=== PATIENT | female | born 1975 | race Caucasian/White ===

== ENCOUNTER 2016-07-17 17:47 | Emergency (ER) | payer SELFPAY ==
[~2016-07-17] VITALS: Ht 157.5 cm; Wt 54.4 kg
--- NOTE | 2016-07-17 18:04 | EKG ---
[address] [address] Test Date: 2016-07-17 Test Time: 18:03:38 Pat Name: FELIX CANNON Department: Room: Gender: F Ambulance Paramedic: : 1973-07-02 Requested By: LEVON VEGA Order Number: [id number] Reading MD: Measurements Intervals [place] Rate: 111 P: 71 IN: 130 QRS: 76 QRSD: 110 T: 8 QT: 320 QTc: 438 Interpretive Statements SINUS TACHYCARDIA LEFT ATRIAL ABNORMALITY ABNORMAL ECG RI6.01 Unconfirmed report No previous ECG available for comparison
[2016-07-17] MEDS ORDERED: IV NORMAL SALINE 1,000ML 1,000 ML ONE (18:17)
--- NOTE | 2016-07-17 18:46 | PHYS DOC ---
General Chief Complaint: DRUG ABUSE Time Seen by MD: 18:34 Source: patient Problems: History of Present Illness Initial Comments Patient here for generalized pain and weakness. Patient says it started yesterday is increased today. She says she I as painful the tip of her head to her toes and affects her entire body. She is really unable to localize any particular pain. She also says she feels weak and can barely get out of bed and go to the bathroom today. She's had no distinct fever or chills. There is no runny nose or sore throat. There is no earache. She says she's had a cough and occasional posttussive emesis, but none today. She denies any shortness of breath with this. Cough is otherwise nonproductive. She has some diffuse chest discomfort. There is no nausea currently. She also has abdominal discomfort, his part and parcel of her generalized pain according to her. Is no change in bladder habits. Her last period is unknown. She says she's had 4-5 episodes of diarrhea today without blood or bilious material. She says her diarrhea was so bad last night she cannot control her stool. She says her lower extremities feel somewhat shoulder her. She is generalized weak and achy but has no focal extremity or neurologic complaints of any acute nature at this time. Patient's done nothing at home for this and notes no factors that increase or decrease her symptoms. Patient's past medical history is remarkable for previous right rotator cuff surgery. She says she is postop surgery on the left. She had a hysterectomy. She also has recent injury to the right forearm with a bruise. She is currently on no prescribed medications. She smokes a pack per day of cigarettes. She is nonuser of ethanol. She missed IV drug use. She usually shoots up her right arm. She does Opana on a regular basis, most recently today. She did some heroin last week which was unusual for her. She says she was last tested for HIV and hepatitis in April 2015 and was negative. She says she uses clean needles. She says she is willing to go to detox or rehabilitation as needed. She last went 6 years ago. Allergies: Coded Allergies: No Known Drug Allergies (Unverified , 07/17/16) Past Medical History Surgical History: other Social History Smoker: less than 1 pack/day Alcohol: none Drugs: heroin, other Review of Systems All Other Systems: Reviewed and Negative Physical Exam General Appearance: WD/WN, mild distress Eyes: bilateral eye EOMI, bilateral eye PERRL, bilateral eye normal inspection Ear, Nose, Throat: normal ENT inspection, normal pharynx Neck: full range of motion, supple, normal inspection Respiratory: lungs clear, normal breath sounds, no respiratory distress Cardiovascular: regular rate, rhythm, no edema Gastrointestinal: soft, tenderness Back: no CVA tenderness, no vertebral tenderness Extremities: non-tender, normal inspection, swelling Neurologic/Psychiatric: no motor/sensory deficits, alert, normal mood/affect, oriented x 3 Skin: normal color Lymphatic: no adenopathy Comments Generally this is a thin, seemingly malnourished white female who looks significantly older than stated age. She appears to be mildly uncomfortable. Vitals are as noted. Pertinent findings on physical exam shows ears and throat clear. Patient's extremely poor dentition. Pupils are equal reactive light accommodation. Extra ocular movements are intact. The neck is clear. Chest is clear and cardiovascular exams unremarkable. Back shows no CVA tenderness. The abdomen is surprisingly tender to palpation, somewhat worse on the right lower quadrant. No masses, organomegaly, or perineal findings. He does have 1+ bilateral lower extremity edema without redness, cords, asymmetry, or signs of DVT. Left forearm is in a brace. Skin shows no rashes but there are multiple excoriations present throughout the body. She is awake, alert, oriented 4, with no gross motor or sensory deficits appreciated. She is cooperative with exam. Remainder of physical exam is clinically unremarkable. Orders, Labs, Meds Old charts note no prior ER visits within the current system. LEVON VEGA MD Jul 17, 2016 18:46
[2016-07-17] MEDS ORDERED: FENTANYL PF 100 MCG/2 ML VIAL. IV ONE ×2 (19:15→23:15)
[2016-07-17] MEDS ORDERED: IV NORMAL SALINE 1,000ML 1,000 ML IV ONE (19:15)
[2016-07-17 19:51] LABS: BASO % 0 % (0-3); EOS # 0.6 x10^3/uL (0.0-0.7); EOS % 3 % (0-3); HEMOGLOBIN 11.3 g/dL (12.0-15.5); LYMPH # 0.8 x10^3/uL (1.0-4.8); LYMPH % 4 % (24-48); MEAN CORPUSCULAR HEMOGLOBIN 29 pg (25-35); MEAN CORPUSCULAR HGB CONC 33 g/dL (31-37); MEAN CORPUSCULAR VOLUME 88 fL (79-100); MONO # 1.6 x10^3/uL (0.0-1.1); MONO % 8 % (0-9); NEUT # 17.3 x10^3uL (1.8-7.7); NEUT % 85 % (31-73); RED BLOOD COUNT 3.86 x10^6/uL (3.50-5.40); RED CELL DISTRIBUTION WIDTH 14.3 % (11.5-14.5); WHITE BLOOD COUNT 20.4 x10^3/uL (4.0-11.0)
[2016-07-17 19:56] LABS: PLATELET COUNT 19 x10^3/uL (140-400)
--- NOTE | 2016-07-17 20:08 | RAD ---
PROCEDURE CT abdomen pelvis without contrast. HISTORY Right upper quadrant pain, body aches. TECHNIQUE Helical CT imaging of the abdomen and pelvis is performed without IV or oral contrast. PQRS: One or more the following individualized dose reduction techniques were utilized for the study: 1. Automated exposure control. 2. Adjustment of the mA and/or kV according to patient size. 3. Use of iterative reconstruction technique. COMPARISON None. FINDINGS Evaluation of solid organs and bowel is limited without oral and IV contrast, decreasing sensitivity for detection of pathology. Spleen mildly enlarged measuring 13.2 cm. Liver is moderately enlarged measuring 21.6 cm. There are numerous subcentimeter pulmonary nodules in the lung bases. Several of the nodules are part solid there is a part solid mass in the right lower lobe versus consolidation measuring 2.6 by 4.6 cm. Cardiac size normal. Gallbladder, pancreas, adrenal glands, kidneys, and abdominal aortic caliber normal. No obvious abnormality of the stomach. No dilated small bowel is seen. Distal colon not well distended accentuating wall thickness. Appendix surgically absent. Uterus unremarkable. Urinary bladder normal. No pelvic free fluid. Small probable bone islands bilateral iliac wings. IMPRESSION 1. There is consolidation and ground-glass opacity in the posterior right lower lobe. There are multiple part solid pulmonary nodules. Considerations include atypical pneumonia, septic emboli, inflammatory process, or metastatic disease. Short-term follow up CT chest is recommended. 2. Hepatosplenomegaly. 3. No acute abdominal or pelvic abnormality. Electronically signed by: Rickie Walton MD (Jul 17, 2016 20:07:01)
[2016-07-17 20:12] LABS: ALBUMIN 2.2 g/dL (3.4-5.0); ALBUMIN/GLOBULIN RATIO 0.5 (1.0-1.7); C REACTIVE PROTEIN 194.1 mg/L (0-3.3); CALCIUM 7.5 mg/dL (8.5-10.1); CREATININE 2.5 mg/dL (0.6-1.0); GFR 20.9; TOTAL PROTEIN 6.7 g/dL (6.4-8.2)
[2016-07-17 20:17] LABS: POTASSIUM 2.9 mmol/L (3.5-5.1)
[2016-07-17 20:49] LABS: AMPHETAMINE/METHAMPHETAMINE NEG (NEG); BARBITURATES NEG (NEG); BENZODIAZEPINES NEG (NEG); CANNABINOIDS NEG (NEG); COCAINE NEG (NEG); METHADONE NEG (NEG); OPIATES NEG (NEG); PHENCYCLIDINE NEG (NEG)
[2016-07-17 20:51] LABS: CLARITY,URINE TURBID; COLOR,URINE YELLOW
[2016-07-17 20:52] LABS: BILIRUBIN,URINE NEG (NEG); GLUCOSE,URINE NEG (NEG); NITRITE,URINE NEG (NEG); UROBILINOGEN,URINE 1 mg/dL (0.2 mg/dL)
[2016-07-17 20:53] LABS: BACTERIA,URINE 0 /HPF (0-FEW); WBC,URINE >40 /HPF (0-4)
--- NOTE | 2016-07-17 20:56 | ACF ---
Admission Criteria Forms HYPONATREMIA; HYPERNATREMIA; HYPOKALEMIA; HYPERKALEMIA; HYPOCALCEMIA; HYPERCALCEMIA Clinical Indications for Inpatient Care (Place 'X' for any and all applicable criteria): Ongoing inpatient care may be indicated for ANY ONE of the following [G](1)(2)(3 )(5): [X]I. Hyponatremia with ANY ONE of the following: [X]a) Sodium less than 130 mEq/L (mmol/L) (new) (6)(22) [ ]b) Sodium less than 135 mEq/L (mmol/L) with ANY ONE of the following: [ ]i) Severe medical etiology requiring inpatient management (eg, heart failure, hypovolemia) [ ]ii) Altered mental status [ ]iii) Seizures [ ]II. Hypernatremia with ANY ONE of the following: [ ]a) Sodium greater than 155 mEq/L (mmol/L) [ ]b) Sodium greater than 150 mEq/L (mmol/L) with ANY ONE of the following: [ ] i) Altered mental status [ ]ii) Seizures [ ]iii) Severe medical etiology (eg, hypovolemia, diabetes insipidus) [ ]iv) Severe weakness [ ]v) Severe medical etiology (eg, hemolysis, infection, drug overdose) [ ]III. Hypokalemia with ANY ONE of the following: [ ]a) Potassium less than 2.5 mEq/L (mmol/L) despite outpatient and emergency treatment [ ]b) Potassium less than 3.0 mEq/L (mmol/L) with ANY ONE of the following: [ ]i) Weakness [ ]ii) Cardiac abnormality (eg, arrhythmia, conduction disturbance) [ ]iii) Cardiac ischemia [ ]iv) Ileus [ ]v) Ongoing medical cause requiring inpatient management. ( e.g., acute renal wasting, SIADH) [ ]vi) Other severe symptoms [ ] IV. Hyperkalemia with ANY ONE of the following: [ ]a) Potassium greater than 6.5 mEq/L (mmol/L) [ ]b) Potassium greater than 5 mEq/L (mmol/L) with ANY ONE of the following: [ ]i) Severe ECG findings [H] [ ]ii) Acute worsening of renal failure (creatinine greater than 2.5 mg/dL (221 micromoles/L) or significant elevation for age and size) [ ] V. Hypocalcemia with ANY ONE of the following: [ ]a) Calcium less than 7 mg/dL (1.75 mmol/L) despite outpatient and emergency treatment(19) [ ]b) Calcium less than 8 mg/dL (2 mmol/L) with significant symptoms or findings; examples include: [ ]i) Cardiac abnormality (eg, arrhythmia or conduction disturbance) [ ]ii) Altered mental status [ ]iii) Seizures [ ]iv) Breathing difficulty [ ]v) Muscle spasms [ ]. Hypercalcemia with ANY ONE of the following: [ ]a) Calcium greater than 14 mg/dL (3.5 mmol/L) [ ]b) Calcium greater than 12 mg/dL (3 mmol/L) with ANY ONE of the following: [ ]i) Significant dehydration or hypovolemia as indicated by ANY ONE of the following(2): [ ]1. Clinically significant dehydration as indicated by ANY ONE of the following: [ ]A. Acute loss of weight from baseline (5% of body weight in adults, 9% in pediatric patients) [ ]B. Hemodynamic instability [ ]C. Acute renal failure [ ]D. Serum sodium greater than 150 mEq/L (mmol/L) [ ]2) Dehydration that is persistent indicated by ALL of the following: [ ]A. Oral rehydration therapy not tolerated or insufficient to adequately correct dehydration [ ]B. Appropriate intravenous treatment (eg, fluids ) does not readily correct dehydration ie, after 12 to 24 hours of treatment) [ ]ii) Significant symptoms or findings; examples include: [ ]1) Altered mental status [ ]2) Cardiac abnormality (eg, arrhythmia, conduction disturbance) [ ]3) Cardiac abnormality (eg, arrhythmia, conduction disturbance) The original [email or web address] content created by [email or web address] has been revised. The portions of the content which have been revised are identified through the use of italic text or in bold, and [facility] has neither reviewed nor approved the modified material. All other unmodified content is copyright [facility] Please see references footnoted in the original [facility] [employer] edition 2016 Admission Criteria Met?: Pending POP HUERTAS Jul 17, 2016 20:56
[2016-07-17 21:33] LABS: % BANDS 7 % (0-9); % LYMPHS 6 % (24-48); % MONOS 6 % (0-10); % SEGS 79 % (35-66)
[2016-07-17 21:34] LABS: TOXIC GRANULATION PRESENT
[2016-07-17 21:35] LABS: PLT ESTIMATE DECREASED (ADEQUATE)
[2016-07-17 21:36] LABS: TOXIC VACUOLATION PRESENT
[2016-07-17 21:37] LABS: HOWELL-JOLLY BODIES PRESENT
[2016-07-17] MEDS ORDERED: MEROPENEM 1 GM in IV NORMAL SALINE 100ML 100 ML IV SCH (22:15)
[2016-07-17] MEDS ORDERED: VANCOMYCIN 1 GM in IV NORMAL SALINE 250ML 250 ML IV ONE (22:15)
[2016-07-17] MEDS ORDERED: IV NORMAL SALINE 100ML 100 ML ONE (22:16)
[2016-07-17] MEDS ORDERED: IV NORMAL SALINE 250ML 250 ML ONE (22:16)
[2016-07-17] MEDS ORDERED: VANCOMYCIN 1 GM VIAL. ONE (22:16)
[2016-07-17] MEDS ORDERED: MEROPENEM 1 GM VIAL IV ONE (22:16)
[2016-07-18 00:44] VITALS: BP 101/44
--- NOTE | 2016-07-18 08:42 | RAD ---
Portable chest, 07/17/2016: History: Cough, shortness of breath Comparison is made to a study from 11/20/2010. The heart size and pulmonary vascularity are normal. No definite pulmonary infiltrates are seen. Basilar parenchymal opacities delineated on the subsequent CT study are not clearly visualize radiographically. There is no evidence of pleural fluid. IMPRESSION: No acute cardiopulmonary abnormality is detected.
[2016-07-18 19:11] LABS: HCV ANTIBODY >11.0 s/co ratio (0.0-0.9); HEP A IGM ABDY Negative (Negative)
== END 2016-07-18 00:48 | disposition short-term general hospital (02) ==
LOC: ER 17:47
DX: M79.1 Myalgia (principal); N39.0 Urinary tract infection, site not specified; R16.2 Hepatomegaly with splenomegaly, not elsewhere classified; D69.6 Thrombocytopenia, unspecified; R79.1 Abnormal coagulation profile; D72.829 Elevated white blood cell count, unspecified; R19.7 Diarrhea, unspecified; R07.9 Chest pain, unspecified; F17.210 Nicotine dependence, cigarettes, uncomplicated
CPT/HCPCS: 36415; 71010; 74176; 80053; 80074; 80305; 80320; 81001; 82010; 82140; 82150; 82553; 83605; 83690; 85007; 85027; 85379; 86140; 86703; 87040; 87205; 93005; 96361; 96365; 96366; 96367; 96375; 96376; 99285; J2185; J3010; J3370; J7050; G0480; G0481; J7030

== ENCOUNTER 2016-09-06 01:24 | Emergency (ER) | payer SELFPAY ==
[~2016-09-06] VITALS: Ht 309.9 cm; Wt 54.4 kg
--- NOTE | 2016-09-06 01:39 | ED.ADGEN ---
Past History Past Medical History: Other Past Surgical History: Other Alcohol Use: None Drug Use: Heroin, Opiates Adult General Chief Complaint Chief Complaint Dyspnea HPI HPI Patient is a 41 year old Sophie female who presents with shortness of breath. She was just discharged on August 28 from [facility] after a month stay in the hospital which included her being intubated and having endocarditis, with a PEG tube. She still has her PEG tube and states she hasn't used it since she was discharged from [facility]. She states she was seen at [facility] recently for back pain which she still currently has and was discharged from the ER with [facility] for a UTI. She states she also is on Xanax for episodes of panic attacks and dyspnea. She states that tonight she started feeling short of breath and she usually tries to relax with the lights shut off and her shortness of breath has not improved. She denies any chest pain but states she feels uncomfortable in her chest secondary to shortness of breath. She also felt nauseated and hasn' t been eating or drinking much. She states that she's had for 5 episodes of loose stools without any blood in it over the last 1-2 days. She also complains of right upper quadrant pain this been constant. She also complains of low back pain that's been there for several days and was seen and evaluated on September 03 by an MRI. She denies any drug use since July 28 in addition his same time she quit smoking. Which is admitted to [facility] on July 28, she had the following diagnosis. 1. Sepsis 2. Acute hypoxic respir failure 3. Endocarditis 3. PNA 4. Bilateral empyemas 5. Acute respiratory failure 6. Diarrhea 7. Anemia 8. Thrombocytopenia 9. CHERELLE 10. Hep C 11. Polysubstance abuse 12. Depression 13. Malnutrition [] She was discharged on August 28 from [facility] after she was trached and had a PEG tube placed. She since had her trach removed. She was seen on September 03 at [facility] for back pain and had MRI of her back in a CT scan of her abdomen pelvis. Review of Systems Review of Systems Constitutional: Denies fever or chills [] Eyes: Denies change in visual acuity, redness, or eye pain [] HENT: Denies nasal congestion or sore throat [] Respiratory: Denies cough or shortness of breath [] Cardiovascular: No additional information not addressed in HPI [] GI: Denies abdominal pain, nausea, vomiting, bloody stools or diarrhea [] : Denies dysuria or hematuria [] Musculoskeletal: Denies back pain or joint pain [] Integument: Denies rash or skin lesions [] Neurologic: Denies headache, focal weakness or sensory changes [] Endocrine: Denies polyuria or polydipsia [] Current Medications Current Medications Current Medications Medications (Trade) Dose Ordered Sig/Latrell Start Time Stop Time Status Last Admin Dose Admin Albuterol/ Ipratropium (Duoneb) 3 ml 1X ONCE 09/06/16 05:45 09/06/16 05:46 UNV Fentanyl Citrate (Fentanyl 2ml Vial) 50 mcg 1X ONCE 09/06/16 05:15 09/06/16 05:16 DC 09/06/16 05:15 50 MCG Furosemide (Lasix) 40 mg 1X ONCE 09/06/16 05:45 09/06/16 05:46 UNV Info (Do NOT chart on this entry -- for MONITORING) 1 each PRN DAILY PRN 09/06/16 03:30 09/08/16 03:29 Iohexol (Omnipaque 300 Mg/ml) 75 ml 1X ONCE 09/06/16 03:30 09/06/16 03:31 DC 09/06/16 03:28 75 ML Lorazepam (Ativan) 1 mg 1X ONCE 09/06/16 03:00 09/06/16 03:21 DC 09/06/16 02:51 1 MG Sodium Chloride 1,000 ml @ 1,000 mls/hr 1X ONCE 09/06/16 02:00 09/06/16 03:21 DC 09/06/16 02:00 1,000 MLS/HR Allergies Allergies Allergies Coded Allergies Type Severity Reaction Last Updated Verified No Known Drug Allergies 07/17/16 No Physical Exam Physical Exam Constitutional: Well developed, well nourished, in mild distress, non-toxic appearance. [] HENT: Normocephalic, atraumatic, bilateral external ears normal, oropharynx moist, no oral exudates, nose normal. [] Eyes: PERRLA, EOMI, conjunctiva normal, no discharge. [] Neck: Normal range of motion, no tenderness, supple, no stridor. Well-healing trach site Cardiovascular:Heart rate tachycardic with regular rhythm, no murmur [] Lungs & Thorax: Bilateral breath sounds clear to auscultation him a tachypneic [] Abdomen: Bowel sounds at both active, soft, tender palpation in the right upper quadrant, no masses, no pulsatile masses. PEG tube in left quadrant Skin: Warm, dry, no erythema, no rash. [] Back: No tenderness, no CVA tenderness. [] Extremities: No tenderness, no cyanosis, no clubbing, ROM intact, no edema. [] Neurologic: Alert and oriented X 3, normal motor function, normal sensory function, no focal deficits noted. [] Psychologic: Affect normal, judgement normal, mood normal. [] Current Patient Data Vital Signs Vital Signs Date Time Temp Pulse Resp B/P (MAP) Pulse Ox O2 Delivery O2 Flow Rate FiO2 09/06/16 04:52 97.6 129 40 132/116 (121) 95 Nasal Cannula 2.5 Lab Results Laboratory Tests Test 09/06/16 01:45 09/06/16 02:15 09/06/16 02:20 09/06/16 03:30 White Blood Count 17.7 x10^3/uL (4.0-11.0) H Red Blood Count 4.11 x10^6/uL (3.50-5.40) Hemoglobin 12.3 g/dL (12.0-15.5) Hematocrit 38.0 % (36.0-47.0) Mean Corpuscular Volume 93 fL (79-100) Mean Corpuscular Hemoglobin 30 pg (25-35) Mean Corpuscular Hemoglobin Concent 32 g/dL (31-37) Red Cell Distribution Width 19.7 % (11.5-14.5) H Platelet Count 293 x10^3/uL (140-400) # Neutrophils (%) (Auto) 68 % (31-73) Lymphocytes (%) (Auto) 26 % (24-48) Monocytes (%) (Auto) 5 % (0-9) Eosinophils (%) (Auto) 1 % (0-3) Basophils (%) (Auto) 1 % (0-3) Neutrophils # (Auto) 12.1 x10^3uL (1.8-7.7) H Lymphocytes # (Auto) 4.5 x10^3/uL (1.0-4.8) Monocytes # (Auto) 0.9 x10^3/uL (0.0-1.1) Eosinophils # (Auto) 0.1 x10^3/uL (0.0-0.7) Basophils # (Auto) 0.2 x10^3/uL (0.0-0.2) Segmented Neutrophils % 55 % (35-66) Band Neutrophils % 3 % (0-9) Lymphocytes % 36 % (24-48) Atypical Lymphocytes % (Manual) 2 % (0-0) H Monocytes % 3 % (0-10) Eosinophils % 1 % (0-5) Nucleated Red Blood Cells 0 Platelet Estimate Adequate (ADEQUATE) Anisocytosis Present Microcytosis Present Macrocytosis Present Erythrocyte Sedimentation Rate 41 (0-25) H Sodium Level 139 mmol/L (136-145) Potassium Level 4.4 mmol/L (3.5-5.1) Chloride Level 104 mmol/L (98-107) Carbon Dioxide Level 21 mmol/L (21-32) Anion Gap 14 (6-14) Blood Urea Nitrogen 11 mg/dL (7-20) Creatinine 0.7 mg/dL (0.6-1.0) Estimated GFR (Cockcroft-Gault) 91.8 BUN/Creatinine Ratio 16 (6-20) Glucose Level 168 mg/dL (70-99) H Lactic Acid Level 5.5 mmol/L (0.4-2.0) *H Calcium Level 8.6 mg/dL (8.5-10.1) Total Bilirubin 0.8 mg/dL (0.2-1.0) Aspartate Amino Transferase (AST) 34 U/L (15-37) Alanine Aminotransferase (ALT) 20 U/L (14-59) Alkaline Phosphatase 286 U/L (46-116) H Creatine Kinase 47 U/L (26-192) Creatine Kinase MB (Mass) < 0.5 ng/mL (0.0-3.6) Creatine Kinase MB Relative Index 1.1 % (0-4) Troponin I Quantitative 0.051 ng/mL (0-0.055) C-Reactive Protein 29.4 mg/L (0-3.3) H HP-Rzl-N-Type Natriuretic Peptide 16899 pg/mL (0-124) H Total Protein 8.0 g/dL (6.4-8.2) Albumin 2.2 g/dL (3.4-5.0) L Albumin/Globulin Ratio 0.4 (1.0-1.7) L Blood pH 7.44 (7.35-7.45) Blood Gas PCO2 28 mmHg (35-45) L Blood Gas PO2 73 mmHg (80-100) L Blood Gas HCO3 19 mmol/L (22-26) L Arterial Bld O2 Saturation (Calc) 95 % (92-99) FiO2 28 % Prothrombin Time 13.8 SEC (9.4-11.4) H Prothrombin Time INR 1.3 (0.9-1.1) H PTT 24 SEC (23-33) Lipase 66 U/L (73-393) L Salicylates Level 0.5 mg/dL (2.8-20.0) L Salicylate Last Dose Date 09/06/16 Salicylate Last Dose Time 0242 Acetaminophen Level < 2 mcg/mL (10-30) L Acetaminophen Last Dose Date 09/06/16 Acetaminophen Last Dose Time 0242 Ethyl Alcohol Level < 10 mg/dL (0-10) Test 09/06/16 04:00 Urine Collection Type Void Urine Color Lori Urine Clarity Hazy Urine pH 6.0 Urine Specific [place] 1.025 Urine Protein 100 mg/dl (NEG-TRACE) Urine Glucose (UA) Neg mg/dL (NEG) Urine Ketones (Stick) Neg mg/dL (NEG) Urine Blood Small (NEG) Urine Nitrite Neg (NEG) Urine Bilirubin Neg (NEG) Urine Urobilinogen Dipstick 1 mg/dL (0.2 mg/dL) Urine Leukocyte Esterase Trace (NEG) Urine RBC 3-5 /HPF (0-2) Urine WBC 5-10 /HPF (0-4) Urine Squamous Epithelial Cells Few /LPF Urine Bacteria Mod /HPF (0-FEW) Urine Mucus Mod /LPF Urine Test Negative (NEG) Urine Opiates Screen Neg (NEG) Urine Methadone Screen Neg (NEG) Urine Barbiturates Neg (NEG) Urine Phencyclidine Screen Neg (NEG) Urine Amphetamine/Methamphetamine Neg (NEG) Urine Benzodiazepines Screen Pos (NEG) Urine Cocaine Screen Neg (NEG) Urine Cannabinoids Screen Neg (NEG) Urine Ethyl Alcohol Neg (NEG) EKG EKG EKG shows sinus tachycardia 328 bpm with right axis deviation, T-wave inversions noted in 1, 2, V5 V6, no ST elevations appreciated, QTC 494 ms, as interpreted by me. EKG is similar to one on September 03, 2016 with noted T-wave inversions in lead 1, aVL, V5 and V6 however the rate was 85 bpm Radiology/Procedures Radiology/Procedures [address] [id number] IMAGING REPORT Signed PATIENT: FELIX CANNON ACCOUNT: [id number] : 1975 LOCATION: ER AGE: 41 SEX: F EXAM STATUS: REG ER ORD. PHYSICIAN: GAMALIEL PRUITT MD REASON: abd pain with elevated lactic acid PROCEDURE: CT ANGIO CHEST ABD PELVIS EXAM: CT ANGIOGRAPHY OF THE CHEST, ABDOMEN AND PELVIS WITH AND WITHOUT INTRAVENOUS CONTRAST. HISTORY: Shortness of breath, nausea, lactic acidosis, abdominal pain. TECHNIQUE: Computed tomographic angiography of the chest, abdomen and pelvis was performed before and after the intravenous administration of 75 mL Omnipaque 300. 3-D maximum intensity projections were also performed. COMPARISON: July 17, 2016, September 03, 2016. FINDINGS: No pulmonary emboli are identified. The lower lobe pulmonary arteries are not well opacified on the left greater than right. This is likely from early contrast timing and altered perfusion in the mostly consolidated left lower lobe. There is no thoracic aortic dissection or aneurysm.. There is no arch vessel stenosis. There is no abdominal aortic aneurysm. The iliac systems are patent without stenosis. The celiac axis, superior mesenteric artery and inferior mesenteric artery are patent. Both renal arteries are patent. There is a small accessory artery to the left renal lower pole. Bone windows reveal no suspicious lesions. There are small to moderate bilateral pleural effusions. These appear at least partially loculated. There is some gas in the pleural space in the left base as seen on the prior study. There is diffuse septal line thickening indicating [id number] pulmonary edema. Multiple cavitary lesions measure up to 4.6 x 1.5 cm in the left upper lobe. These are superimposed on the nodules noted on prior studies. The left lower lobe is partially consolidated and atelectatic. The heart is moderately enlarged. There is a small pericardial effusion. Mediastinal lymph nodes measure up to 2.0 x 1.0 cm in the lateral aortic territory. There is diffuse body wall edema. A gastrostomy catheter is in place. The liver is moderately to severely enlarged with at least mild diffuse hepatic steatosis. The spleen is not enlarged. The adrenal glands, pancreas and kidneys are unremarkable. Diffuse gallbladder wall thickening likely reflects systemic edema rather than cholecystitis. There are no pathologically enlarged lymph nodes. There is a small to moderate amount of ascites throughout the abdomen. There is no obstruction. There is mild diffuse colonic and small bowel wall thickening. IMPRESSION: 1. Cavitary lesions most notably in the left upper lobe suggest evolution of septic emboli on comparison with prior studies and the history of intravenous drug abuse. Also correlate to exclude atypical infectious processes such as mycobacterial infection. 2. Consolidation and atelectasis are worst in the left lower lobe. 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 3. Bilateral small to moderate loculated pleural effusions. 4. Moderate cardiomegaly. 5. At least moderate pulmonary edema. Anasarca. Small to moderate ascites. 6. Diffuse small bowel and colonic wall thickening may reflect systemic edema. Ischemia could produce this appearance if there is shock/hypotension. No mesenteric arterial stenosis. *One or more of the following individualized dose reduction techniques were utilized for this examination: 1. Automated exposure control. 2. Adjustment of the mA and/or kV according to patient size. 3. Use of iterative reconstruction technique. Electronically signed by: Nydia King MD (09/06/2016 4:10 AM) DICTATED AND SIGNED BY: WILFRIDO KING MD DATE: 09/06/16 0353 CC: GAMALIEL PRUITT MD; MALIA BELCHER DO ~ Course & Med Decision Making Course & Med Decision Making Pertinent Labs and Imaging studies reviewed. (See chart for details) She presents with tachypnea and tachycardia. Her lactic acid is 5.5 with a pH is 7.44. She does have a metabolic acidosis with a respiratory alkalosis. She was placed on 2 liter of oxygen on arrivial. CT scan of her abdomen and pelvis has been completed. Spoke with to [facility] excepts the patient for admission. The patient being admitted to the ICU in critical but stable condition this time. She has pulmonary edema and ascites. Her respiratory rate is elevated at 35 in addition to her heart rate in the 120s. I've held off giving IV fluids secondary to her pulmonary edema and requiring 2 L of oxygen. She is requiring additional oxygen and now up to 5 liters. I've offered BiPAP to the patient however she refuses it because of her claustrophobia. I gave her 40 mg IV lasix and ordered a duo neb for ems to deliver in route to [facility] ICU. Patient and her is agreeable to being transferred to the ICU at [facility]. She is in stable but critical condition. Final Impression Final Impression Metabolic acidosis with respiratory alkalosis hypoxemia Abdominal pain History of endocarditis Back pain Pulmonary edema Ascites Problems: Dragon Disclaimer Dragon Disclaimer This electronic medical record was generated, in whole or in part, using a voice recognition dictation system. GAMALIEL PRUITT MD Sep 06, 2016 01:39
[2016-09-06 01:57] LABS: BASO # 0.2 x10^3/uL (0.0-0.2); BASO % 1 % (0-3); EOS # 0.1 x10^3/uL (0.0-0.7); EOS % 1 % (0-3); HEMOGLOBIN 12.3 g/dL (12.0-15.5); LYMPH # 4.5 x10^3/uL (1.0-4.8); LYMPH % 26 % (24-48); MEAN CORPUSCULAR HEMOGLOBIN 30 pg (25-35); MEAN CORPUSCULAR HGB CONC 32 g/dL (31-37); MEAN CORPUSCULAR VOLUME 93 fL (79-100); MONO # 0.9 x10^3/uL (0.0-1.1); MONO % 5 % (0-9); NEUT # 12.1 x10^3uL (1.8-7.7); NEUT % 68 % (31-73); PLATELET COUNT 293 x10^3/uL (140-400); RED BLOOD COUNT 4.11 x10^6/uL (3.50-5.40); RED CELL DISTRIBUTION WIDTH 19.7 % (11.5-14.5); WHITE BLOOD COUNT 17.7 x10^3/uL (4.0-11.0)
[2016-09-06] MEDS ORDERED: IPRATRPIUM/ALBUTEROL 0.5/2.5MG 3 ML NEBU. NEB ONE ×2 (02:00→05:45)
[2016-09-06] MEDS ORDERED: LORazepam 2 MG/ML VIAL IV ONE ×2 (02:00→03:00)
[2016-09-06] MEDS ORDERED: IV NORMAL SALINE 1,000ML 1,000 ML IV ONE (02:00)
[2016-09-06 02:28] LABS: ALBUMIN 2.2 g/dL (3.4-5.0); ALBUMIN/GLOBULIN RATIO 0.4 (1.0-1.7); ALK PHOS 286 U/L (46-116); ALT (SGPT) 20 U/L (14-59); ANION GAP 14 (6-14); AST (SGOT) 34 U/L (15-37); BLOOD UREA NITROGEN 11 mg/dL (7-20); BUN/CREATININE RATIO 16 (6-20); CALCIUM 8.6 mg/dL (8.5-10.1); CARBON DIOXIDE 21 mmol/L (21-32); CHLORIDE 104 mmol/L (98-107); CREATINE KINASE 47 U/L (26-192); CREATININE 0.7 mg/dL (0.6-1.0); GFR 91.8; GLUCOSE 168 mg/dL (70-99); POTASSIUM 4.4 mmol/L (3.5-5.1); SODIUM 139 mmol/L (136-145); TOTAL BILIRUBIN 0.8 mg/dL (0.2-1.0)
[2016-09-06 02:29] LABS: BGAS PH 7.44 (7.35-7.45)
[2016-09-06 03:02] LABS: % ATYL 2 % (0-0); % BANDS 3 % (0-9); % EOS 1 % (0-5); % LYMPHS 36 % (24-48); % MONOS 3 % (0-10); % SEGS 55 % (35-66); NUCLEATED RBC 0; PLT ESTIMATE ADEQUATE (ADEQUATE)
[2016-09-06 03:03] LABS: ANISOCYTOSIS PRESENT; MICROCYTOSIS PRESENT
[2016-09-06] MEDS ORDERED: IOHEXOL 300 MG/ML 75 ML VIAL. IV ONE (03:30)
[2016-09-06] MEDS ORDERED: CONTRAST GIVEN MC PRN (03:30)
[2016-09-06 03:51] LABS: SALIC 0.5 mg/dL (2.8-20.0)
[2016-09-06 03:52] LABS: ACETAMIN < 2 mcg/mL (10-30); ETHANOL < 10 mg/dL (0-10)
--- NOTE | 2016-09-06 04:13 | RAD ---
EXAM: CT ANGIOGRAPHY OF THE CHEST, ABDOMEN AND PELVIS WITH AND WITHOUT INTRAVENOUS CONTRAST. HISTORY: Shortness of breath, nausea, lactic acidosis, abdominal pain. TECHNIQUE: Computed tomographic angiography of the chest, abdomen and pelvis was performed before and after the intravenous administration of 75 mL Omnipaque 300. 3-D maximum intensity projections were also performed. COMPARISON: July 17, 2016, September 03, 2016. FINDINGS: No pulmonary emboli are identified. The lower lobe pulmonary arteries are not well opacified on the left greater than right. This is likely from early contrast timing and altered perfusion in the mostly consolidated left lower lobe. There is no thoracic aortic dissection or aneurysm.. There is no arch vessel stenosis. There is no abdominal aortic aneurysm. The iliac systems are patent without stenosis. The celiac axis, superior mesenteric artery and inferior mesenteric artery are patent. Both renal arteries are patent. There is a small accessory artery to the left renal lower pole. Bone windows reveal no suspicious lesions. There are small to moderate bilateral pleural effusions. These appear at least partially loculated. There is some gas in the pleural space in the left base as seen on the prior study. There is diffuse septal line thickening indicating [id number] pulmonary edema. Multiple cavitary lesions measure up to 4.6 x 1.5 cm in the left upper lobe. These are superimposed on the nodules noted on prior studies. The left lower lobe is partially consolidated and atelectatic. The heart is moderately enlarged. There is a small pericardial effusion. Mediastinal lymph nodes measure up to 2.0 x 1.0 cm in the lateral aortic territory. There is diffuse body wall edema. A gastrostomy catheter is in place. The liver is moderately to severely enlarged with at least mild diffuse hepatic steatosis. The spleen is not enlarged. The adrenal glands, pancreas and kidneys are unremarkable. Diffuse gallbladder wall thickening likely reflects systemic edema rather than cholecystitis. There are no pathologically enlarged lymph nodes. There is a small to moderate amount of ascites throughout the abdomen. There is no obstruction. There is mild diffuse colonic and small bowel wall thickening. IMPRESSION: 1. Cavitary lesions most notably in the left upper lobe suggest evolution of septic emboli on comparison with prior studies and the history of intravenous drug abuse. Also correlate to exclude atypical infectious processes such as mycobacterial infection. 2. Consolidation and atelectasis are worst in the left lower lobe. 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 3. Bilateral small to moderate loculated pleural effusions. 4. Moderate cardiomegaly. 5. At least moderate pulmonary edema. Anasarca. Small to moderate ascites. 6. Diffuse small bowel and colonic wall thickening may reflect systemic edema. Ischemia could produce this appearance if there is shock/hypotension. No mesenteric arterial stenosis. *One or more of the following individualized dose reduction techniques were utilized for this examination: 1. Automated exposure control. 2. Adjustment of the mA and/or kV according to patient size. 3. Use of iterative reconstruction technique. Electronically signed by: Nydia King MD (09/06/2016 4:10 AM)
[2016-09-06] MEDS ORDERED: fentaNYL PF 100 MCG/2 ML VIAL IV ONE ×2 (04:15→05:15)
[2016-09-06 04:27] LABS: BILIRUBIN,URINE NEG (NEG); CLARITY,URINE HAZY; COLOR,URINE AMBER; GLUCOSE,URINE NEG (NEG); U PREG PATIENT NEGATIVE (NEG)
[2016-09-06 04:28] LABS: BARBITURATES NEG (NEG); BENZODIAZEPINES POS (NEG); CANNABINOIDS NEG (NEG); COCAINE NEG (NEG); METHADONE NEG (NEG); OPIATES NEG (NEG); PHENCYCLIDINE NEG (NEG)
[2016-09-06 04:29] LABS: BACTERIA,URINE MOD /HPF (0-FEW); NITRITE,URINE NEG (NEG); SQUAMOUS EPITHELIAL CELL,UR FEW /LPF; UROBILINOGEN,URINE 1 mg/dL (0.2 mg/dL)
[2016-09-06 04:34] LABS: AMPHETAMINE/METHAMPHETAMINE NEG (NEG)
[2016-09-06 04:57] VITALS: BP 133/111
[2016-09-06] MEDS ORDERED: FUROSEMIDE 40 MG/4 ML VIAL IVP ONE (05:45)
--- NOTE | 2016-09-06 06:08 | EKG ---
[address] [address] Test Date: 2016-09-06 Test Time: 01:46:44 Pat Name: FELIX CANNON Department: Room: Gender: F Trimming Caser: BRYN : 1975 Requested By: GAMALIEL PRUITT Order Number: [id number] Reading MD: Torres Goldberg Measurements Intervals [place] Rate: 128 P: 31 AK: 114 QRS: 92 QRSD: 94 T: -176 QT: 336 QTc: 494 Interpretive Statements SINUS TACHYCARDIA LEFT ATRIAL ABNORMALITY RIGHTWARD AXIS LOW LIMB LEAD VOLTAGE QRS(T) CONTOUR ABNORMALITY CONSIDER ANTEROSEPTAL MYOCARDIAL DAMAGE T ABNORMALITY IN ANTEROLATERAL LEADS INFEROLATERAL LEADS RI6.01 Unconfirmed report Electronically Signed On 09-10-2016 9:36:53 CDT by Torres Goldberg
--- NOTE | 2016-09-06 07:39 | RAD ---
Indication: Dyspnea. Time of exam 0148 hours. Correlation is made with prior exam from 07/17/2016. The heart is enlarged. There are patchy airspace infiltrates that have developed throughout both lungs. There are also small to moderate bilateral effusions. No pneumothorax is seen. Impression: Development of bilateral pulmonary infiltrates and bilateral pleural effusions.
== END 2016-09-06 05:58 | disposition short-term general hospital (02) ==
LOC: ER 01:24
DX: E87.4 Mixed disorder of acid-base balance (principal); R09.02 Hypoxemia; R18.8 Other ascites; J81.1 Chronic pulmonary edema; M54.9 Dorsalgia, unspecified; R10.9 Unspecified abdominal pain; F11.10 Opioid abuse, uncomplicated; F19.10 Other psychoactive substance abuse, uncomplicated
CPT/HCPCS: 36415; 36600; 71010; 71275; 74174; 80053; 80305; 81001; 81025; 82553; 82803; 83605; 83690; 83880; 84484; 85007; 85027; 85610; 85651; 85730; 86140; 87040; 87086; 87186; 87324; 93005; 94640; 96361; 96374; 96375; 96376; 99285; G0480; J1940; J2060; J3010; J7620; Q9967; G0481; J7030

== ENCOUNTER 2016-10-29 19:46 | Emergency (ER) | payer SELFPAY ==
[~2016-10-29] VITALS: Ht 309.9 cm; Wt 54.4 kg
[2016-10-29 19:50] VITALS: BP 109/67
[2016-10-29] MEDS ORDERED: AZITHROMYCIN 250 MG TABLET. ONE (20:34)
[2016-10-29] MEDS ORDERED: cefTRIAXone SODIUM 1 GM VIAL IV ONE (20:34)
[2016-10-29] MEDS ORDERED: IV NORMAL SALINE 50ML 50 ML ONE (20:34)
[2016-10-29 20:45] LABS: BASO # 0.1 x10^3/uL (0.0-0.2); BASO % 1 % (0-3); EOS # 0.4 x10^3/uL (0.0-0.7); EOS % 5 % (0-3); HEMATOCRIT 44.7 % (36.0-47.0); HEMOGLOBIN 14.8 g/dL (12.0-15.5); LYMPH # 3.7 x10^3/uL (1.0-4.8); LYMPH % 40 % (24-48); MEAN CORPUSCULAR HEMOGLOBIN 32 pg (25-35); MEAN CORPUSCULAR HGB CONC 33 g/dL (31-37); MEAN CORPUSCULAR VOLUME 95 fL (79-100); MONO # 0.6 x10^3/uL (0.0-1.1); MONO % 6 % (0-9); NEUT # 4.6 x10^3uL (1.8-7.7); NEUT % 49 % (31-73); PLATELET COUNT 158 x10^3/uL (140-400); RED BLOOD COUNT 4.68 x10^6/uL (3.50-5.40); RED CELL DISTRIBUTION WIDTH 14.5 % (11.5-14.5); WHITE BLOOD COUNT 9.4 x10^3/uL (4.0-11.0)
[2016-10-29 20:52] LABS: ALBUMIN 3.7 g/dL (3.4-5.0); ALBUMIN/GLOBULIN RATIO 0.8 (1.0-1.7); CALCIUM 9.3 mg/dL (8.5-10.1); CREATININE 0.9 mg/dL (0.6-1.0); GFR 68.7; POTASSIUM 5.3 mmol/L (3.5-5.1); TOTAL BILIRUBIN 0.5 mg/dL (0.2-1.0); TOTAL PROTEIN 8.3 g/dL (6.4-8.2)
[2016-10-29] MEDS ORDERED: CONTRAST GIVEN MC PRN (21:00)
[2016-10-29] MEDS ORDERED: IOHEXOL 300 MG/ML 75 ML VIAL. IV ONE (21:00)
[2016-10-29 21:11] LABS: BACTERIA,URINE FEW /HPF (0-FEW); BILIRUBIN,URINE NEG (NEG); CLARITY,URINE CLOUDY; COLOR,URINE YELLOW; GLUCOSE,URINE NEG (NEG); NITRITE,URINE NEG (NEG); SQUAMOUS EPITHELIAL CELL,UR MANY /LPF; UROBILINOGEN,URINE 0.2 mg/dL (0.2 mg/dL)
--- NOTE | 2016-10-30 05:21 | ED.ADGEN ---
Past History Past Medical History: Anxiety, Hepatitis, Other Past Surgical History: Other Alcohol Use: None Drug Use: Heroin, Opiates Adult General Chief Complaint Chief Complaint Lower abdominal pain HPI HPI Patient is a 41-year-old female with recent discharge from [facility] after prolonged ICU stay in which the patient required a PEG tube placement for pneumonia and congestive heart failure presents with diffuse lower abdominal pain. Patient states symptoms began yesterday. Pain is migratory nonspecific various with intensity. It is not associated with vomiting , diarrhea or constipation. Patient is currently taking oxycodone with limited relief. She does not have fever chills flank pain chest pain or shortness of breath. Other acute symptoms or complaint. She is accompanied at bedside by her significant other. Review of Systems Review of Systems Review symptoms as per history of present illness. Current Medications Current Medications Current Medications Medications (Trade) Dose Ordered Sig/Latrell Start Time Stop Time Status Last Admin Dose Admin Azithromycin (Zithromax) 250 mg STK-MED ONCE 10/29/16 20:34 10/29/16 20:35 DC Ceftriaxone Sodium (Rocephin) 1 gm STK-MED ONCE 10/29/16 20:34 10/29/16 20:35 DC Info (Do NOT chart on this entry -- for MONITORING) 1 each PRN DAILY PRN 10/29/16 21:00 10/29/16 23:55 DC Iohexol (Omnipaque 300 Mg/ml) 75 ml 1X ONCE 10/29/16 21:00 10/29/16 21:01 DC 10/29/16 21:33 75 ML Sodium Chloride 50 ml @ As Directed STK-MED ONCE 10/29/16 20:34 10/29/16 20:35 DC Allergies Allergies Allergies Coded Allergies Type Severity Reaction Last Updated Verified No Known Drug Allergies 07/17/16 No Physical Exam Physical Exam Constitutional: Well developed, anxious, no acute distress. HENT: Normocephalic, atraumatic, bilateral external ears normal, oropharynx moist, no oral exudates, nose normal. Eyes: PERRL Neck: Normal range of motion, no tenderness, supple, no stridor. Cardiovascular:Heart rate regular rhythm. Lungs & Thorax: Bilateral breath sounds clear to auscultation. Abdomen: Bowel sounds normal, soft, mild distention, diffuse lower abdominal pain without voluntary Skin: Warm, dry. Back: No tenderness, no CVA tenderness. Extremities: No tenderness. Neurologic: Alert and oriented X 3, normal motor function, normal sensory function, no focal deficits noted. Psychologic: Affect normal, judgement normal, mood normal. Current Patient Data Vital Signs Vital Signs Date Time Temp Pulse Resp B/P (MAP) Pulse Ox O2 Delivery O2 Flow Rate FiO2 10/29/16 19:50 97.5 107 22 98 Room Air Lab Results Laboratory Tests Test 10/29/16 20:20 White Blood Count 9.4 x10^3/uL (4.0-11.0) Red Blood Count 4.68 x10^6/uL (3.50-5.40) Hemoglobin 14.8 g/dL (12.0-15.5) Hematocrit 44.7 % (36.0-47.0) Mean Corpuscular Volume 95 fL (79-100) Mean Corpuscular Hemoglobin 32 pg (25-35) Mean Corpuscular Hemoglobin Concent 33 g/dL (31-37) Red Cell Distribution Width 14.5 % (11.5-14.5) Platelet Count 158 x10^3/uL (140-400) Neutrophils (%) (Auto) 49 % (31-73) Lymphocytes (%) (Auto) 40 % (24-48) Monocytes (%) (Auto) 6 % (0-9) Eosinophils (%) (Auto) 5 % (0-3) H Basophils (%) (Auto) 1 % (0-3) Neutrophils # (Auto) 4.6 x10^3uL (1.8-7.7) Lymphocytes # (Auto) 3.7 x10^3/uL (1.0-4.8) Monocytes # (Auto) 0.6 x10^3/uL (0.0-1.1) Eosinophils # (Auto) 0.4 x10^3/uL (0.0-0.7) Basophils # (Auto) 0.1 x10^3/uL (0.0-0.2) Urine Collection Type Void Urine Color Yellow Urine Clarity Cloudy Urine pH 7.0 Urine Specific [place] 1.015 Urine Protein Neg (NEG-TRACE) Urine Glucose (UA) Neg mg/dL (NEG) Urine Ketones (Stick) Neg mg/dL (NEG) Urine Blood Trace (NEG) Urine Nitrite Neg (NEG) Urine Bilirubin Neg (NEG) Urine Urobilinogen Dipstick 0.2 mg/dL (0.2 mg/dL) Urine Leukocyte Esterase Small (NEG) Urine RBC 1-2 /HPF (0-2) Urine WBC 5-10 /HPF (0-4) Urine Squamous Epithelial Cells Many /LPF Urine Bacteria Few /HPF (0-FEW) Sodium Level 137 mmol/L (136-145) Potassium Level 5.3 mmol/L (3.5-5.1) H Chloride Level 101 mmol/L (98-107) Carbon Dioxide Level 28 mmol/L (21-32) Anion Gap 8 (6-14) Blood Urea Nitrogen 29 mg/dL (7-20) H Creatinine 0.9 mg/dL (0.6-1.0) Estimated GFR (Cockcroft-Gault) 68.7 BUN/Creatinine Ratio 32 (6-20) H Glucose Level 117 mg/dL (70-99) H Calcium Level 9.3 mg/dL (8.5-10.1) Total Bilirubin 0.5 mg/dL (0.2-1.0) Aspartate Amino Transferase (AST) 47 U/L (15-37) H Alanine Aminotransferase (ALT) 91 U/L (14-59) H Alkaline Phosphatase 377 U/L (46-116) H Total Protein 8.3 g/dL (6.4-8.2) H Albumin 3.7 g/dL (3.4-5.0) Albumin/Globulin Ratio 0.8 (1.0-1.7) L Lipase 178 U/L (73-393) EKG EKG [] Radiology/Procedures Radiology/Procedures [CT and lab work reviewed.] Course & Med Decision Making Course & Med Decision Making Pertinent Labs and Imaging studies reviewed. (See chart for details) [No acute intra-abdominal findings and CT evaluation. Patient noted to have elevation in LFTs and alkaline phosphatase. Patient does not exhibit upper abdominal pain on exam and has hepatitis and findings of hepatic congestion on imaging studies. No constipation with follow-up with PCP for repeat evaluation and review of abnl lab. Return precautions reviewed. Patient verbalizes understanding agreement discharge instructions prior to departure.] Final Impression Final Impression [1. Abdominal pain, nonspecific 2. Constipation] Problems: Dragon Disclaimer Dragon Disclaimer This electronic medical record was generated, in whole or in part, using a voice recognition dictation system. BAILEY ALVARADO DO Oct 30, 2016 05:21
--- NOTE | 2016-10-30 14:16 | RAD ---
EXAM: 1. CT ANGIOGRAPHY OF THE CHEST WITH CONTRAST. 2. CT ABDOMEN/PELVIS WITH CONTRAST. HISTORY: Right chest and abdominal pain. TECHNIQUE: Computed tomographic angiography of the chest and CT of the abdomen/pelvis was performed after the intravenous administration of iodinated contrast. 3-D maximum intensity projections were also performed. COMPARISON: September 06, 2016. FINDINGS: Bone windows reveal no suspicious lesions. No pulmonary emboli are identified. There is no aortic dissection or aneurysm. A left infrahilar lymph node is prominent at 1.2 x 1.0 cm. This appears decreased since the prior study. There are no clearly pathologic mediastinal or axillary lymph nodes. There are small bilateral pleural effusions. There is no pericardial effusion. The heart is moderately enlarged and predominantly right-sided pattern. Left ventricular hypertrophy is also present. A cavitary region in the left lower lobe is better seen on partial decompression of the previously noted pleural effusions. It measures 4.5 x 1.2 cm. Communication with the left pleural space is no longer seen. Another small cavitary focus in the lingula measures 1.6 x 0.8 cm. This was in a region of consolidation previously. A cavitary region in the left upper lobe measures 3.6 x 1.8 cm. It now has a thin wall, improved since the prior study. Additional cavitary foci and multiple nodules in both upper lobes have improved but not completely resolved. Multiple small pneumatoceles are likely postinflammatory. An opacity in the right costophrenic angle may represent atelectasis or residual/recurrent infiltrate. The liver is moderately enlarged. Heterogeneous attenuation of the hepatic parenchyma suggests venous congestion. The spleen is not enlarged. The adrenal glands and gallbladder are unremarkable. Incidental note is made of pancreas divisum. Stool throughout the colon is consistent with constipation. The appendix is surgically absent. There is no obstruction. Mild stranding within the omentum may reflect systemic edema. There is a small amount of pelvic ascites. IMPRESSION: 1. No pulmonary embolism. 2. Multiple cavitary lesions and solid nodules have improved since the prior study, suggesting resolving septic emboli. The previously suggested left bronchopleural fistula is no longer seen 3. A small opacity in the right costophrenic angle may represent a residual or recurrent infiltrate versus atelectasis. Correlate for active infection. 4. Small bilateral pleural effusions. 5. Moderate cardiomegaly in a predominantly right ventricular pattern. 6. Hepatomegaly. Findings consistent with hepatic venous congestion. 7. Correlate for constipation. *One or more of the following individualized dose reduction techniques were utilized for this examination: 1. Automated exposure control. 2. Adjustment of the mA and/or kV according to patient size. 3. Use of iterative reconstruction technique. Electronically signed by: Nydia King MD (10/29/2016 10:46 PM) [facility] DICTATED AND SIGNED BY: WILFRIDO KING MD DATE: 10/29/16 [facility]
== END 2016-10-29 23:40 | disposition home or self-care (01) ==
LOC: ER 19:46
DX: K59.00 Constipation, unspecified (principal); I50.9 Heart failure, unspecified; F11.10 Opioid abuse, uncomplicated; F19.10 Other psychoactive substance abuse, uncomplicated
CPT/HCPCS: 36415; 71275; 74177; 80053; 81001; 83690; 85027; 87086; 99285; Q9967

== ENCOUNTER 2016-11-12 16:53 | Emergency (ER) | payer SELFPAY ==
--- NOTE | 2016-11-12 17:22 | PHYS DOC ---
Past History Past Medical History: Anxiety, Hepatitis, Other Past Surgical History: Other Alcohol Use: None Drug Use: Heroin, Opiates Adult General Chief Complaint Chief Complaint: ABDOMINAL PAIN HPI HPI 41-year-old female presenting to the emergency department today with right upper quadrant abdominal pain. She describes it as moderate intermittent nonradiating without alleviating factors. It is not associated with nausea or vomiting. She denies fevers or chills at home. She reports a history of hepatitis C. 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 Review of systems is negative for chest pain shortness of breath fevers chills diarrhea constipation or blood in stool. All other review of systems is negative unless otherwise noted in history of present illness. ED course: 41-year-old female presenting to the emergency department with right upper quadrant abdominal pain. Vital signs unremarkable. Pertinent physical exam findings showed mild tenderness in the right upper quadrant without rebound tenderness or guarding. Negative Woodson sign. Negative McBurney's point. Lungs are clear to auscultation. Heart sounds are unremarkable. Otherwise unremarkable exam. IV established and IV pain medication administered. CT of the abdomen pelvis ordered. Unfortunately this test was not back prior. Sign out at 6 PM and the patient was subsequent signed out to Dr. Chris with plans to follow-up on the patient's CT the abdomen pelvis and reexamination. Review of Systems Review of Systems See above Current Medications Current Medications Current Medications Medications (Trade) Dose Ordered Sig/Latrell Start Time Stop Time Status Last Admin Dose Admin Hydromorphone HCl (Dilaudid) 0.5 mg PRN Q15MIN PRN 11/12/16 17:15 11/13/16 17:14 Allergies Allergies Allergies Coded Allergies Type Severity Reaction Last Updated Verified No Known Drug Allergies 07/17/16 No Physical Exam Physical Exam Constitutional: Well developed, well nourished, no acute distress, non-toxic appearance. [] HENT: Normocephalic, atraumatic, bilateral external ears normal, oropharynx moist, no oral exudates, nose normal. [] Eyes: PERRLA, EOMI, conjunctiva normal, no discharge. [] Neck: Normal range of motion, no tenderness, supple, no stridor. [] Cardiovascular:Heart rate regular rhythm, no murmur [] Lungs & Thorax: Bilateral breath sounds clear to auscultation [] Abdomen: See above Skin: Warm, dry, no erythema, no rash. [] Back: No tenderness, no CVA tenderness. [] Extremities: No tenderness, no cyanosis, no clubbing, ROM intact, no edema. [] Neurologic: Alert and oriented X 3, normal motor function, normal sensory function, no focal deficits noted. [] Psychologic: Affect normal, judgement normal, mood normal. [] Current Patient Data Vital Signs Vital Signs Date Time Temp Pulse Resp B/P (MAP) Pulse Ox O2 Delivery O2 Flow Rate FiO2 11/12/16 19:11 20 98 Room Air 11/12/16 16:53 98.4 98 EKG EKG Interpreted by me: Heart rate 79, sinus rhythm, normal intervals, normal axis, no acute ST/T-wave abnormalities present [] Radiology/Procedures Radiology/Procedures [address] [address] IMAGING REPORT Signed PATIENT: FELIX CANNON ACCOUNT: [id number] : 1975 LOCATION: ER AGE: 41 SEX: F EXAM STATUS: REG ER ORD. PHYSICIAN: STEFANY LOZANO MD REASON: abd pain PROCEDURE: CT ABD PELV W/ IV CONTRST ONLY Indication: Abdominal pain. The patient has a history of hepatitis C. Axial imaging through the abdomen and pelvis was performed after the administration of intravenous contrast. Comparison is made with prior CT from 10/29/2016. Chronic parenchymal densities in the left lower lobe are stable to improved when compared with the prior exam. The liver is enlarged and heterogeneous, similar to prior exam. No discrete liver mass is detected. The gallbladder is contracted. The pancreas and spleen are unremarkable. No adrenal mass is detected. The kidneys are unremarkable. Aorta is nonaneurysmal. There is moderate stool throughout the colon. Small bowel does not appear to be distended. There is no ascites. There are multiple pelvic varices present. Bladder is unremarkable. IMPRESSION: Overall stable CT of the abdomen and pelvis when compared with recent study from 10/29/2016. No new abnormality is detected. Electronically signed by: Yosef Decker MD (11/12/2016 7:09 PM) [facility] DICTATED AND SIGNED BY: YOSEF DECKER MD DATE: 11/12/16 190 CC: FREDDIE CHRIS MD; STEFANY LOZANO MD; JOSE BURNS MD ~ [] Course & Med Decision Making Course & Med Decision Making Pertinent Labs and Imaging studies reviewed. (See chart for details) Addendum by Dr. Freddie Chris: I took over care of patient at 1800. I followed up with the patient's CT imaging as instructed. The patient's CT scan was stable from previous. Patient has mildly elevated liver function tests consistent with acute exacerbation of viral hepatitis. The patient's vital signs however are stable at this time. The patient states that she was mostly concerned about a possible acute surgical process which does not appear to be present at this time. At this time I recommended the patient symptomatic control with pain medication and hydration. Advised follow-up in 2 days with primary doctor for reevaluation and return to emergency department for any worsening symptoms. Patient voiced understanding and in agreement with treatment plan. Dragon Disclaimer Dragon Disclaimer This chart was dictated in whole or in part using Voice Recognition software in a busy, high-work load, and often noisy Emergency Department environment. It may contain unintended and wholly unrecognized errors or omissions. Departure Departure: Impression: Primary Impression: Right upper quadrant abdominal pain Disposition: 01 HOME, SELF-CARE Condition: IMPROVED Referrals: JOSE BURNS MD (PCP) Patient Instructions: Abdominal Pain (Nonspecific), Hepatitis C Additional Instructions: Follow-up with your primary doctor in the next 2 days for reevaluation. Return to emergency department for any worsening symptoms. STEFANY LOZANO MD Nov 12, 2016 17:22 FREDDIE CHRIS MD Nov 12, 2016 19:51
[2016-11-12] MEDS: HYDROmorphone PF 1 MG/ML DISP.SYRIN IV/SQ PRN ×3 (17:40→20:00)
[2016-11-12 17:52] LABS: BASO % 1 % (0-3); EOS % 0 % (0-3); HEMATOCRIT 46.8 % (36.0-47.0); HEMOGLOBIN 15.5 g/dL (12.0-15.5); LYMPH # 1.6 x10^3/uL (1.0-4.8); LYMPH % 17 % (24-48); MEAN CORPUSCULAR HEMOGLOBIN 32 pg (25-35); MEAN CORPUSCULAR HGB CONC 33 g/dL (31-37); MEAN CORPUSCULAR VOLUME 96 fL (79-100); MONO # 0.3 x10^3/uL (0.0-1.1); MONO % 3 % (0-9); NEUT # 7.9 x10^3uL (1.8-7.7); NEUT % 79 % (31-73); PLATELET COUNT 160 x10^3/uL (140-400); RED BLOOD COUNT 4.88 x10^6/uL (3.50-5.40); RED CELL DISTRIBUTION WIDTH 14.1 % (11.5-14.5); WHITE BLOOD COUNT 9.9 x10^3/uL (4.0-11.0)
--- NOTE | 2016-11-12 17:52 | EKG ---
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
[2016-11-12 18:01] LABS: CALCIUM 9.5 mg/dL (8.5-10.1); CREATININE 0.9 mg/dL (0.6-1.0); DIRECT BILIRUBIN 0.4 mg/dL (0.0-0.2); GFR 68.7; POTASSIUM 5.2 mmol/L (3.5-5.1); TOTAL BILIRUBIN 0.6 mg/dL (0.2-1.0); TOTAL PROTEIN 8.8 g/dL (6.4-8.2)
[2016-11-12 18:23] LABS: BACTERIA,URINE MANY /HPF (0-FEW); BILIRUBIN,URINE NEG (NEG); CLARITY,URINE CLOUDY; COLOR,URINE YELLOW; GLUCOSE,URINE NEG (NEG); NITRITE,URINE NEG (NEG); RBC,URINE OCC /HPF (0-2); SQUAMOUS EPITHELIAL CELL,UR MANY /LPF; UROBILINOGEN,URINE 0.2 mg/dL (0.2 mg/dL)
[2016-11-12] MEDS ORDERED: CONTRAST GIVEN MC PRN (18:30)
[2016-11-12] MEDS ORDERED: IOHEXOL 300 MG/ML 75 ML VIAL. IV ONE (18:30)
[2016-11-12 18:34] LABS: U PREG PATIENT NEGATIVE (NEG)
--- NOTE | 2016-11-12 19:12 | RAD ---
Indication: Abdominal pain. The patient has a history of hepatitis C. Axial imaging through the abdomen and pelvis was performed after the administration of intravenous contrast. Comparison is made with prior CT from 10/29/2016. Chronic parenchymal densities in the left lower lobe are stable to improved when compared with the prior exam. The liver is enlarged and heterogeneous, similar to prior exam. No discrete liver mass is detected. The gallbladder is contracted. The pancreas and spleen are unremarkable. No adrenal mass is detected. The kidneys are unremarkable. Aorta is nonaneurysmal. There is moderate stool throughout the colon. Small bowel does not appear to be distended. There is no ascites. There are multiple pelvic varices present. Bladder is unremarkable. IMPRESSION: Overall stable CT of the abdomen and pelvis when compared with recent study from 10/29/2016. No new abnormality is detected. Electronically signed by: Yosef Decker MD (11/12/2016 7:09 PM) [facility]
[2016-11-12 20:12] VITALS: BP 112/84
== END 2016-11-12 20:12 | disposition home or self-care (01) ==
LOC: ER 16:53
DX: R10.11 Right upper quadrant pain (principal); Z86.19 Personal history of other infectious and parasitic diseases
CPT/HCPCS: 36415; 74177; 80048; 80076; 81001; 81025; 83690; 84484; 85027; 87086; 93005; 96374; 96375; 96376; 99285; J1170; Q9967

== ENCOUNTER 2016-11-30 15:43 | Emergency (ER) | payer SELFPAY ==
[2016-11-30] MEDS ORDERED: IV NORMAL SALINE 1,000ML 1,000 ML IV ONE (16:15)
[2016-11-30] MEDS ORDERED: fentaNYL PF 100 MCG/2 ML VIAL IV PRN (16:15)
[2016-11-30 17:40] LABS: BASO # 0.1 x10^3/uL (0.0-0.2); BASO % 1 % (0-3); EOS # 0.7 x10^3/uL (0.0-0.7); EOS % 8 % (0-3); HEMATOCRIT 47.3 % (36.0-47.0); HEMOGLOBIN 15.6 g/dL (12.0-15.5); LYMPH # 3.6 x10^3/uL (1.0-4.8); LYMPH % 41 % (24-48); MEAN CORPUSCULAR HEMOGLOBIN 31 pg (25-35); MEAN CORPUSCULAR HGB CONC 33 g/dL (31-37); MEAN CORPUSCULAR VOLUME 95 fL (79-100); MONO # 0.6 x10^3/uL (0.0-1.1); MONO % 7 % (0-9); NEUT # 3.9 x10^3uL (1.8-7.7); NEUT % 44 % (31-73); PLATELET COUNT 161 x10^3/uL (140-400); WHITE BLOOD COUNT 8.8 x10^3/uL (4.0-11.0)
[2016-11-30 17:48] LABS: ALBUMIN 3.8 g/dL (3.4-5.0); ALBUMIN/GLOBULIN RATIO 0.9 (1.0-1.7); CALCIUM 9.3 mg/dL (8.5-10.1); CREATININE 0.8 mg/dL (0.6-1.0); GFR 78.7; POTASSIUM 3.9 mmol/L (3.5-5.1); TOTAL BILIRUBIN 0.5 mg/dL (0.2-1.0); TOTAL PROTEIN 7.9 g/dL (6.4-8.2)
[2016-11-30 17:53] LABS: BACTERIA,URINE FEW /HPF (0-FEW); BILIRUBIN,URINE NEG (NEG); CLARITY,URINE HAZY; COLOR,URINE YELLOW; GLUCOSE,URINE NEG (NEG); NITRITE,URINE NEG (NEG); RBC,URINE OCC /HPF (0-2); SQUAMOUS EPITHELIAL CELL,UR MANY /LPF; UROBILINOGEN,URINE 0.2 mg/dL (0.2 mg/dL); WBC,URINE OCC /HPF (0-4)
[2016-11-30] MEDS ORDERED: TRAM50TA PO (18:44)
[2016-11-30] MEDS ORDERED: START PACK - traMADol 1 STARTPACK TABLET PO ONE (18:45)
[2016-11-30 18:50] VITALS: BP 100/71
--- NOTE | 2016-11-30 20:31 | ED.ADGEN ---
Past History Past Medical History: Anxiety, Bronchitis, CHF, Hepatitis, Other Past Surgical History: Appendectomy, , Tonsillectomy, Other Alcohol Use: None Drug Use: Heroin, Opiates Adult General [facility] HPI Patient is a 41-year-old woman, history of hepatitis C, CHF, anxiety, who presents to the emergency department with a complaint of abdominal pain. Patient states that the pain she experienced is consistent with her intermittent "flares", abdominal pain. She's been evaluated for these issues previously, including an [employer] emergency department on the seventh of this month. She states that she does have a primary care provider with him she has following, and currently she is searching for a head of commission department, but is having issues establishing care due to insurance problems. She states that she is not experiencing any fevers or chills, any nausea or vomiting, any diarrhea. She states the pain is cramping sore and feeling as a "swelling" located on the right side of her abdomen. She denies any flank pain, any urinary complaints, any injuries, any travel, any swelling extremities, any rashes, any chest pain or shortness of breath. Patient states that generally when she has this pain tramadol as effective, she did take 2 tramadol today without relief. States she only has one tramadol left at home. Review of Systems Review of Systems Constitutional: Denies fever or chills [] Eyes: Denies change in visual acuity, redness, or eye pain [] HENT: Denies nasal congestion or sore throat [] Respiratory: Denies cough or shortness of breath [] Cardiovascular: No additional information not addressed in HPI [] GI: Denies nausea, vomiting, bloody stools or diarrhea [] complaining of right- sided abdominal pain, recurrent in nature. : Denies dysuria or hematuria [] Musculoskeletal: Denies back pain or joint pain [] Integument: Denies rash or skin lesions [] Neurologic: Denies headache, focal weakness or sensory changes [] Endocrine: Denies polyuria or polydipsia [] Current Medications Current Medications Current Medications Medications (Trade) Dose Ordered Sig/Latrell Start Time Stop Time Status Last Admin Dose Admin Fentanyl Citrate (Fentanyl 2ml Vial) 50 mcg PRN Q15MIN PRN 11/30/16 16:15 11/30/16 19:02 DC 11/30/16 17:45 50 MCG Sodium Chloride 1,000 ml @ 1,000 mls/hr 1X ONCE 11/30/16 16:15 11/30/16 17:14 DC 11/30/16 17:45 1,000 MLS/HR Tramadol HCl (Starter Pack - Ultram) 1 startpack 1X ONCE 11/30/16 18:45 11/30/16 18:52 DC Allergies Allergies Allergies Coded Allergies Type Severity Reaction Last Updated Verified No Known Drug Allergies 07/17/16 No Physical Exam Physical Exam Constitutional: Well developed, well nourished, no acute distress, non-toxic appearance. [] HENT: Normocephalic, atraumatic, bilateral external ears normal, oropharynx moist, no oral exudates, nose normal. [] Eyes: PERRLA, EOMI, conjunctiva normal, no discharge. [] Patient with well- healed trach scar. Neck: Normal range of motion, no tenderness, supple, no stridor. [] Cardiovascular:Heart rate regular rhythm, no murmur , S1, S2, rubs or gallops. [ ] Lungs & Thorax: Bilateral breath sounds clear to auscultation, no wheezing, ROM , rales. No chest or crepitus tenderness. [] Abdomen: Bowel sounds normal, soft, patient myofascial palpation in the right upper quadrant, no rebound, rigidity, no guarding. Woodson sign, patient with well-healed surgical incision noted over the left gastric region from healed insertion site of gastric tube, no masses, no pulsatile masses. [] Skin: Warm, dry, no erythema, no rash. [] Back: No tenderness, no CVA tenderness. [] Extremities: No tenderness, no cyanosis, no clubbing, ROM intact, no edema. Negative Homans sign. [] Neurologic: Alert and oriented X 3, normal motor function, normal sensory function, no focal deficits noted. [] Psychologic: Affect normal, judgement normal, mood normal. [] Current Patient Data Lab Results Laboratory Tests Test 11/30/16 17:00 11/30/16 17:15 Urine Collection Type Unknown Urine Color Yellow Urine Clarity Hazy Urine pH 5.5 Urine Specific Grady 1.010 Urine Protein Neg (NEG-TRACE) Urine Glucose (UA) Neg mg/dL (NEG) Urine Ketones (Stick) Neg mg/dL (NEG) Urine Blood Neg (NEG) Urine Nitrite Neg (NEG) Urine Bilirubin Neg (NEG) Urine Urobilinogen Dipstick 0.2 mg/dL (0.2 mg/dL) Urine Leukocyte Esterase Neg (NEG) Urine RBC Occ /HPF (0-2) Urine WBC Occ /HPF (0-4) Urine Squamous Epithelial Cells Many /LPF Urine Bacteria Few /HPF (0-FEW) White Blood Count 8.8 x10^3/uL (4.0-11.0) Red Blood Count 5.00 x10^6/uL (3.50-5.40) Hemoglobin 15.6 g/dL (12.0-15.5) H Hematocrit 47.3 % (36.0-47.0) H Mean Corpuscular Volume 95 fL (79-100) Mean Corpuscular Hemoglobin 31 pg (25-35) Mean Corpuscular Hemoglobin Concent 33 g/dL (31-37) Red Cell Distribution Width 14.0 % (11.5-14.5) Platelet Count 161 x10^3/uL (140-400) Neutrophils (%) (Auto) 44 % (31-73) Lymphocytes (%) (Auto) 41 % (24-48) Monocytes (%) (Auto) 7 % (0-9) Eosinophils (%) (Auto) 8 % (0-3) H Basophils (%) (Auto) 1 % (0-3) Neutrophils # (Auto) 3.9 x10^3uL (1.8-7.7) Lymphocytes # (Auto) 3.6 x10^3/uL (1.0-4.8) Monocytes # (Auto) 0.6 x10^3/uL (0.0-1.1) Eosinophils # (Auto) 0.7 x10^3/uL (0.0-0.7) Basophils # (Auto) 0.1 x10^3/uL (0.0-0.2) Sodium Level 138 mmol/L (136-145) Potassium Level 3.9 mmol/L (3.5-5.1) Chloride Level 103 mmol/L (98-107) Carbon Dioxide Level 26 mmol/L (21-32) Anion Gap 9 (6-14) Blood Urea Nitrogen 22 mg/dL (7-20) H Creatinine 0.8 mg/dL (0.6-1.0) Estimated GFR (Cockcroft-Gault) 78.7 BUN/Creatinine Ratio 28 (6-20) H Glucose Level 96 mg/dL (70-99) Calcium Level 9.3 mg/dL (8.5-10.1) Total Bilirubin 0.5 mg/dL (0.2-1.0) Aspartate Amino Transferase (AST) 26 U/L (15-37) Alanine Aminotransferase (ALT) 58 U/L (14-59) Alkaline Phosphatase 259 U/L (46-116) H Total Protein 7.9 g/dL (6.4-8.2) Albumin 3.8 g/dL (3.4-5.0) Albumin/Globulin Ratio 0.9 (1.0-1.7) L Lipase 191 U/L (73-393) EKG EKG [] Radiology/Procedures Radiology/Procedures Acute abdominal series: 3 view: Patient with normal cardiopulmonary silhouette, no infiltrates or effusions, no pneumothorax, no soft tissue or bony abnormalities identified. No free air. Patient was stool and bowel gas throughout, no evidence of air-fluid levels obstruction or other concerning findings identified. As interpreted by me. [] Course & Med Decision Making Course & Med Decision Making Pertinent Labs and Imaging studies reviewed. (See chart for details) Patient states "this is the same pain that had before", states "nothing is different". Patient states that she has had multiple CTs that have never shown any concerning findings, including one is performed a little over 2 weeks ago. At this time after discussion we decided to proceed with laboratory studies, analgesia, gentle hydration, and an acute abdominal series. She received pain meds in the ED, laboratory studies revealed hemoglobin of 15.6, otherwise CBC was unremarkable, patient with alkaline phosphatase in the 200s, which was improved from her prior, rest of her LFTs were unremarkable. I did discuss these findings patient, who is resting more comfortably at this time, and is relieved by these findings. We did discuss additional imaging and evaluation this time, patient states that she is feeling better, and would like to be discharged home, and based on examination I do not believe that additional evaluation is warranted at this time. It again was addressed with the patient the importance of establishing follow-up with a head of commission department, patient voices understanding and agreement. Patient received a starter pack of tramadol the ED , along with a prescription for 8 tablets to be used as directed, to follow-up with her primary care provider this week, and to return to the ED for any new or concerning symptoms as discussed. Final Impression Final Impression [] Problems: Dragon Disclaimer Dragon Disclaimer This electronic medical record was generated, in whole or in part, using a voice recognition dictation system. Departure: Impression: Primary Impression: Abdominal pain Disposition: HOME, SELF-CARE Condition: IMPROVED Scripts Tramadol Hcl (TRAMADOL HCL) 50 Mg Tablet 50 MG PO PRN Q6HRS Y for PAIN, #8 TAB Prov: JONATHAN LEE DO 11/30/16 JONATHAN LEE DO Nov 30, 2016 20:31
--- NOTE | 2016-12-01 08:39 | RAD ---
Acute abdominal series to include a PA chest radiograph 11/30/2016 Clinical History: Right-sided abdominal pain for 2 days. A PA digital radiograph of the chest was obtained. Supine and erect AP digital radiographs of the abdomen/pelvis were obtained. Comparison study is dated 09/06/2016. The cardiac and mediastinal silhouettes are within normal limits in size and configuration. Patchy areas of subsegmental atelectasis/infiltrate and/or scarring is seen involving the left lower lobe which has improved since the previous examination. No pneumothorax or pleural effusion is seen. The abdominal bowel gas pattern is nonobstructive. There is no evidence of free air. No radiopaque calculus is seen. The osseous structures are grossly intact. Impression: Nonobstructive bowel gas pattern.
== END 2016-11-30 18:55 | disposition home or self-care (01) ==
LOC: ER 15:43
DX: R10.11 Right upper quadrant pain (principal); I50.9 Heart failure, unspecified; Z86.19 Personal history of other infectious and parasitic diseases; Z90.49 Acquired absence of other specified parts of digestive tract; Z98.890 Other specified postprocedural states
CPT/HCPCS: 36415; 74022; 80053; 81001; 83690; 85025; 96361; 96374; 99285; J3010; J7030

== ENCOUNTER 2016-12-21 10:46 | Emergency (ER) | payer SELFPAY ==
[~2016-12-21] VITALS: Ht 162.6 cm; Wt 54.4 kg
[~2016-12-21 10:46] MED LIST: TRAM50TA PO
[2016-12-21 11:54] LABS: BASO # 0.1 x10^3/uL (0.0-0.2); BASO % 1 % (0-3); EOS # 0.4 x10^3/uL (0.0-0.7); EOS % 5 % (0-3); HEMATOCRIT 49.5 % (36.0-47.0); HEMOGLOBIN 16.7 g/dL (12.0-15.5); LYMPH # 2.8 x10^3/uL (1.0-4.8); LYMPH % 35 % (24-48); MEAN CORPUSCULAR HEMOGLOBIN 32 pg (25-35); MEAN CORPUSCULAR HGB CONC 34 g/dL (31-37); MEAN CORPUSCULAR VOLUME 95 fL (79-100); MONO # 0.5 x10^3/uL (0.0-1.1); MONO % 7 % (0-9); NEUT # 4.2 x10^3uL (1.8-7.7); NEUT % 52 % (31-73); PLATELET COUNT 148 x10^3/uL (140-400); RED BLOOD COUNT 5.21 x10^6/uL (3.50-5.40); RED CELL DISTRIBUTION WIDTH 14.6 % (11.5-14.5)
[2016-12-21] MEDS ORDERED: IV NORMAL SALINE 1,000ML 1,000 ML IV SCH (12:00)
[2016-12-21 12:29] LABS: BILIRUBIN,URINE NEG (NEG); CLARITY,URINE CLOUDY; COLOR,URINE YELLOW; GLUCOSE,URINE NEG (NEG); NITRITE,URINE NEG (NEG); RBC,URINE 0 /HPF (0-2); UROBILINOGEN,URINE 0.2 mg/dL (0.2 mg/dL)
[2016-12-21 12:30] LABS: AMORPHOUS SEDIMENT,UR PRESENT /HPF; BACTERIA,URINE MOD /HPF (0-FEW); SQUAMOUS EPITHELIAL CELL,UR MANY /LPF; WBC,URINE OCC /HPF (0-4)
[2016-12-21] MEDS ORDERED: fentaNYL PF 100 MCG/2 ML VIAL IV ONE (12:30)
[2016-12-21 12:33] LABS: AMPHETAMINE/METHAMPHETAMINE NEG (NEG); BARBITURATES NEG (NEG); BENZODIAZEPINES POS (NEG); CANNABINOIDS NEG (NEG); COCAINE NEG (NEG); METHADONE NEG (NEG); OPIATES NEG (NEG); PHENCYCLIDINE NEG (NEG)
[2016-12-21 12:44] LABS: ALBUMIN 3.6 g/dL (3.4-5.0); CALCIUM 8.6 mg/dL (8.5-10.1); CREATININE 0.8 mg/dL (0.6-1.0); GFR 78.7; POTASSIUM 4.4 mmol/L (3.5-5.1); TOTAL BILIRUBIN 0.7 mg/dL (0.2-1.0); TOTAL PROTEIN 7.2 g/dL (6.4-8.2)
[2016-12-21] MEDS ORDERED: DICY20TA3 PO (13:13)
[2016-12-21] MEDS ORDERED: TRAM50TA PO (13:13)
--- NOTE | 2016-12-21 13:14 | PHYS DOC ---
General Chief Complaint: ABDOMINAL PAIN Stated Complaint: ABDOM PAIN; HX OF HEP C/CHF Time Seen by MD: 10:57 Source: patient Exam Limitations: no limitations Problems: History of Present Illness Initial Comments Patient is a 41-year-old female who comes to the ED complaining of chronic right upper quadrant pain. Patient has extensive history of IV drug abuse denies any recent use. She states that since this past July she's had chronic right upper quadrant pain exacerbations due to her hepatitis C. She states that in the past month the symptoms have worsened and she has a referral to see a skip miner however states that she cannot afford it. She says she is awaiting until March when her insurance and disability goes into effect to see GI, she says her primary care doctor advised her to come to the ED when she had pain exacerbations. No nausea vomiting diarrhea no bad food exposure or travel. No recent trauma no fever chills sweats or body aches. Patient states that she hasn 't been eating or drinking due to the pain and she feels very dehydrated she is requesting some IV fluids. Timing/Duration: other Severity: severe Modifying Factors: improves with medication Associated Symptoms: other Allergies: Coded Allergies: No Known Drug Allergies (Unverified , 12/21/16) Past Medical History Medical History: other (chronic right upper quadrant pain, congestive heart failure, "leaky valve", endometriosis, hepatitis C) Surgical History: other Social History Smoker: non-smoker Alcohol: none Drugs: other (history of IV drug use) Review of Systems Constitutional: denies chills, denies diaphoresis, denies fever, malaise Respiratory: denies cough, denies shortness of breath Cardiovascular: denies chest pain, denies palpitations Gastrointestinal: see HPI Genitourinary: denies dysuria, denies frequency, denies hematuria Musculoskeletal: denies back pain, denies joint swelling, denies neck pain Psychiatric/Neurological: denies headache, denies numbness, denies paresthesia Physical Exam General Appearance: mild distress, thin Ear, Nose, Throat: hearing grossly normal, normal ENT inspection (dry membranes ), normal pharynx Neck: non-tender, supple Respiratory: normal breath sounds, no respiratory distress Cardiovascular: normal peripheral pulses, tachycardia Gastrointestinal: soft (nondistended, right upper quadrant tenderness with guarding no palpable mass or organomegaly, no skin changes bowel sounds are normal) Back: no CVA tenderness, no vertebral tenderness Extremities: non-tender, normal inspection Neurologic/Psychiatric: 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 Labs unremarkable urinalysis with squamous epithelial contamination will await culture and sensitivity. I discussed treatment plan patient expressed agreement and understanding of same. Departure Time of Disposition: 13:16 Disposition: 01 HOME, SELF-CARE Diagnosis: chronic abdominal pain, hepatitis C Condition: STABLE Patient Instructions: Abdominal Pain (Nonspecific) Additional Instructions: As discussed your symptoms are chronic in nature. Chronic issues are best managed by your primary care doctor. Follow-up tomorrow with Dr. Alvarado as agreed to set up a plan for you moving forward if the symptoms recur and you have not yet obtained your disability insurance. Prescription: Tramadol 50 mg #14, dicyclomine Return to ED with new or changing symptoms. CIRILO QURIOZ DO Dec 21, 2016 13:14
[2016-12-21] MEDS ORDERED: fentaNYL PF 100 MCG/2 ML VIAL IM ONE (13:15)
[2016-12-21 13:31] VITALS: BP 102/72
== END 2016-12-21 13:35 | disposition home or self-care (01) ==
LOC: ER 10:46
DX: B19.20 Unspecified viral hepatitis C without hepatic coma (principal); I50.9 Heart failure, unspecified; G89.29 Other chronic pain
CPT/HCPCS: 36415; 80053; 80307; 81001; 82550; 83690; 85025; 87086; 96361; 96372; 96374; 99284; J3010; G0479; J7030

== ENCOUNTER 2017-01-20 12:33 | Emergency (ER) | payer SELFPAY ==
[~2017-01-20] VITALS: Ht 162.6 cm; Wt 55.3 kg
[~2017-01-20 12:33] MED LIST changes: +DICY20TA3 PO
--- NOTE | 2017-01-20 13:32 | PHYS DOC ---
Past History Past Medical History: CHF, Endometriosis, Hepatitis, Other Past Surgical History: , Tonsillectomy, Other Alcohol Use: None Drug Use: Other Adult General Chief Complaint Chief Complaint: ABDOMINAL PAIN HPI HPI Patient is a 41 year old F who presents with abdominal pain over the past 3 days. She was seen in the emergency department at [facility] yesterday with IV fluids and labs including urine. All of her workup was negative yesterday. She states that yesterday evening she started taking a laxative and did have regular bowel movements thereafter without significant improvement in her pain. She states that her pain is associated with mild nausea, no vomiting. She does have a history of a feeding tube in the same area that she has pain. Her pain is constant, dull and mostly on the left side. She also states that she has a history of IBS Review of Systems Review of Systems Constitutional: Denies fever or chills [] Eyes: Denies change in visual acuity, redness, or eye pain [] HENT: Denies nasal congestion or sore throat [] Respiratory: Denies cough or shortness of breath [] Cardiovascular: No additional information not addressed in HPI [] GI: Negative except history of present illness : Denies dysuria or hematuria [] Musculoskeletal: Denies back pain or joint pain [] Integument: Denies rash or skin lesions [] Neurologic: Denies headache, focal weakness or sensory changes [] Endocrine: Denies polyuria or polydipsia [] Family History Family History Noncontributory Current Medications Current Medications Medications reviewed Allergies Allergies Allergies Coded Allergies Type Severity Reaction Last Updated Verified No Known Drug Allergies 12/21/16 No Physical Exam Physical Exam Constitutional: Well developed, well nourished, no acute distress, non-toxic appearance. [] HENT: Normocephalic, atraumatic, bilateral external ears normal, oropharynx moist, no oral exudates, nose normal. [] Eyes: EOMI, conjunctiva normal, no discharge. [] Neck: Normal range of motion, no tenderness, supple, no stridor. [] Cardiovascular:Heart rate regular rhythm, no murmur [] Lungs & Thorax: Bilateral breath sounds clear to auscultation [] Abdomen: Scar in the left mid abdomen but seems to have adhesions based on dimpling of the skin. Other laparoscopic scars noted on the left side of the abdomen. Mild tenderness to palpation on the left side of the abdomen. Normal bowel sounds and no pain noted on the right abdomen even when palpated deeply. Skin: Warm, dry, no erythema, no rash. [] Back: No tenderness, no CVA tenderness. [] Extremities: No tenderness, no cyanosis, no clubbing, ROM intact, no edema. [] Neurologic: Alert and oriented X 3, normal motor function, normal sensory function, no focal deficits noted. [] Psychologic: Affect normal, judgement normal, mood normal. [] Current Patient Data Vital Signs Vital Signs Date Time Temp Pulse Resp B/P (MAP) Pulse Ox O2 Delivery O2 Flow Rate FiO2 01/20/17 12:52 97.7 88 16 97 Room Air EKG EKG [] Radiology/Procedures Radiology/Procedures [] Course & Med Decision Making Course & Med Decision Making Pertinent Labs and Imaging studies reviewed. (See chart for details) Labs and imaging were declined. She states that Dilaudid has worked previously for her abdominal pain. She had no signs of an acute abdomen Dragon Disclaimer Dragon Disclaimer This chart was dictated in whole or in part using Voice Recognition software in a busy, high-work load, and often noisy Emergency Department environment. It may contain unintended and wholly unrecognized errors or omissions. Departure Departure: Impression: Primary Impression: Abdominal pain Disposition: 01 HOME, SELF-CARE Condition: STABLE Referrals: JOSE BURNS MD (PCP) Patient Instructions: Abdominal Pain Additional Instructions: Rima was seen in the emergency department for abdominal pain. No emergency medical condition was found on history or physical exam. She is advised to return the emergency room if she develops new or worsening symptoms. She was advised follow-up with her primary care doctor as soon as possible for further management. Problem Qualifiers Primary Impression: Abdominal pain Abdominal location: unspecified location Qualified Codes: R10.9 - Unspecified abdominal pain MICHELLE SALEH MD Jan 20, 2017 13:32
[2017-01-20 13:45] VITALS: BP 105/57
[2017-01-20] MEDS ORDERED: KETOROLAC 60 MG/2 ML VIAL. IM ONE (14:00)
== END 2017-01-20 13:45 | disposition home or self-care (01) ==
LOC: ER 12:33
DX: R10.9 Unspecified abdominal pain (principal); K58.9 Irritable bowel syndrome, unspecified; I50.9 Heart failure, unspecified; Z98.890 Other specified postprocedural states
CPT/HCPCS: 96372; 99283; J1885

== ENCOUNTER 2017-01-21 15:46 | Emergency (ER) | payer SELFPAY ==
[~2017-01-21] VITALS: Ht 162.6 cm; Wt 56.2 kg
[2017-01-21] MEDS ORDERED: IOHEXOL 240 MG/ML 50ML VIAL. ONE (16:26)
[2017-01-21] MEDS ORDERED: IV NORMAL SALINE 1,000ML 1,000 ML IV ONE (16:30)
[2017-01-21] MEDS ORDERED: IOHEXOL 300 MG/ML 75 ML VIAL. IV ONE (16:30)
[2017-01-21] MEDS ORDERED: PROCHLORPERAZINE 10 MG/2 ML VIAL. IV ONE (17:00)
[2017-01-21 17:20] LABS: BASO % 1 % (0-3); EOS # 0.2 x10^3/uL (0.0-0.7); EOS % 3 % (0-3); HEMATOCRIT 46.8 % (36.0-47.0); HEMOGLOBIN 15.6 g/dL (12.0-15.5); LYMPH # 2.9 x10^3/uL (1.0-4.8); LYMPH % 35 % (24-48); MEAN CORPUSCULAR HEMOGLOBIN 33 pg (25-35); MEAN CORPUSCULAR HGB CONC 33 g/dL (31-37); MEAN CORPUSCULAR VOLUME 98 fL (79-100); MONO # 0.5 x10^3/uL (0.0-1.1); MONO % 7 % (0-9); NEUT # 4.5 x10^3uL (1.8-7.7); NEUT % 55 % (31-73); PLATELET COUNT 143 x10^3/uL (140-400); RED BLOOD COUNT 4.79 x10^6/uL (3.50-5.40); WHITE BLOOD COUNT 8.2 x10^3/uL (4.0-11.0)
[2017-01-21 17:25] LABS: ALBUMIN 4.1 g/dL (3.4-5.0); ALBUMIN/GLOBULIN RATIO 1.1 (1.0-1.7); CALCIUM 9.2 mg/dL (8.5-10.1); CREATININE 0.6 mg/dL (0.6-1.0); GFR 109.6; MAGNESIUM 1.8 mg/dL (1.8-2.4); TOTAL BILIRUBIN 0.7 mg/dL (0.2-1.0)
[2017-01-21 17:26] LABS: POTASSIUM 4.6 mmol/L (3.5-5.1)
[2017-01-21 17:29] LABS: BACTERIA,URINE FEW /HPF (0-FEW); BILIRUBIN,URINE NEG (NEG); CLARITY,URINE HAZY; COLOR,URINE YELLOW; GLUCOSE,URINE NEG (NEG); NITRITE,URINE NEG (NEG); SQUAMOUS EPITHELIAL CELL,UR MANY /LPF; UROBILINOGEN,URINE 0.2 mg/dL (0.2 mg/dL); WBC,URINE OCC /HPF (0-4)
[2017-01-21 17:35] LABS: U PREG PATIENT NEGATIVE (NEG)
--- NOTE | 2017-01-21 17:50 | RAD ---
CT Abdomen and Pelvis With Intravenous Contrast: History: Left-sided pain for multiple days. Comparison: CT abdomen pelvis November 12, 2016. Technique: After administration of oral and intravenous contrast administration, 75 mL Omnipaque-300, CT of the abdomen and pelvis was performed. Exposure: One or more of the following individualized dose reduction techniques were utilized for this examination: 1. Automated exposure control 2. Adjustment of the mA and/or kV according to patient size 3. Use of iterative reconstruction technique Findings: Images of lower chest demonstrate enlargement of the right cardiac chambers. The liver is enlarged. Liver has nutmeg appearance, which could represent changes of congestive hepatopathy. Spleen, pancreas, and bilateral adrenal glands unremarkable. Bilateral kidneys enhance symmetrically. There is apparent gallbladder wall thickening versus pericholecystic fluid. Urinary bladder is unremarkable. Left ovary demonstrates a 3.8 cm cyst. Uterus is unremarkable. There is evidence of wall thickening of the sigmoid colon and possibly the descending colon as well. No free air is identified. Small amount of free fluid is present in the pelvis. Impression: 1. Wall thickening of the sigmoid colon. There may also be mild wall thickening of the descending colon. Findings are compatible with nonspecific focal colitis. No perforation or abscess is seen. 2. Appearance of the liver suggests congestive hepatopathy. 3. Gallbladder wall thickening versus pericholecystic fluid. Recommend clinical correlation. Electronically signed by: Xavier Redd MD (01/21/2017 5:47 PM) [facility]
[2017-01-21 18:03] VITALS: BP 125/82
--- NOTE | 2017-01-21 18:13 | PHYS DOC ---
Past History Past Medical History: CHF, Endometriosis, Hepatitis, Other Past Surgical History: , Tonsillectomy, Other Alcohol Use: None Drug Use: Other Social History Narrative: FORMER IV DRUG USER Adult General Chief Complaint Chief Complaint: BACK PAIN OR INJURY HPI HPI Patient is a 41 year old F who presents with abdominal pain over the past 4 days. She was seen in the emergency department at [facility] 2days ago with IV fluids and labs including urine. That workup was negative. That evening after leaving she started taking a laxative and did have regular bowel movements. Yesterday when she was seen in the emergency room she stated that she had improvement after having bowel movements however today she states that her pain worsened after taking laxatives. She continues to states that her pain is associated with mild nausea, no vomiting. She does have a history of a feeding tube in the same area that she has pain. Her pain is constant, dull and mostly on the left side. She does not feel that her symptoms have changed significantly since yesterday but have persisted. She has no other new complaints today. She also states that she has a history of IBS Review of Systems Review of Systems Constitutional: Denies fever or chills [] Eyes: Denies change in visual acuity, redness, or eye pain [] HENT: Denies nasal congestion or sore throat [] Respiratory: Denies cough or shortness of breath [] Cardiovascular: No additional information not addressed in HPI [] GI: Negative except history of present illness : Denies dysuria or hematuria [] Musculoskeletal: Denies joint pain [] Integument: Denies rash or skin lesions [] Neurologic: Denies headache, focal weakness or sensory changes [] Endocrine: Denies polyuria or polydipsia [] Family History Family History Noncontributory Current Medications Current Medications Current Medications Medications (Trade) Dose Ordered Sig/Latrell Start Time Stop Time Status Last Admin Dose Admin Iohexol (Omnipaque 240 Mg/ml) 50 ml STK-MED ONCE 01/21/17 16:26 01/21/17 16:27 DC Iohexol (Omnipaque 300 Mg/ml) 75 ml 1X ONCE 01/21/17 16:30 01/21/17 16:31 DC 01/21/17 17:26 75 ML Prochlorperazine Edisylate (Compazine) 10 mg 1X ONCE 01/21/17 17:00 01/21/17 17:01 DC 01/21/17 16:42 10 MG Sodium Chloride 1,000 ml @ 1,000 mls/hr 1X ONCE 01/21/17 16:30 01/21/17 17:29 DC 01/21/17 16:34 1,000 MLS/HR Allergies Allergies Allergies Coded Allergies Type Severity Reaction Last Updated Verified No Known Drug Allergies 12/21/16 No Physical Exam Physical Exam Constitutional: Well developed, well nourished, no acute distress, non-toxic appearance. [] HENT: Normocephalic, atraumatic, bilateral external ears normal, oropharynx moist, no oral exudates, nose normal. [] Eyes: PERRLA, EOMI, conjunctiva normal, no discharge. [] Neck: Normal range of motion, no tenderness, supple, no stridor. [] Cardiovascular:Heart rate regular rhythm, no murmur [] Lungs & Thorax: Bilateral breath sounds clear to auscultation [] Abdomen: Bowel sounds normal, soft, no masses, no pulsatile masses. [] Mild tenderness on the left lateral abdomen. No abdominal tenderness on the right, epigastric, suprapubic or left anterior abdomen Skin: Warm, dry, no erythema, no rash. [] Back: no CVA tenderness. [] Left-sided flank tenderness Extremities: No tenderness, no cyanosis, no clubbing, ROM intact, no edema. [] Neurologic: Alert and oriented X 3, normal motor function, normal sensory function, no focal deficits noted. [] Psychologic: Affect normal, judgement normal, mood normal. [] Current Patient Data Vital Signs Vital Signs Date Time Temp Pulse Resp B/P (MAP) Pulse Ox O2 Delivery O2 Flow Rate FiO2 01/21/17 18:03 97 16 125/82 (96) 99 01/21/17 15:56 97.6 Room Air Lab Results Laboratory Tests Test 01/21/17 16:25 01/21/17 16:55 Urine Collection Type Unknown Urine Color Yellow Urine Clarity Hazy Urine pH 5.5 Urine Specific [place] <=1.005 Urine Protein Neg (NEG-TRACE) Urine Glucose (UA) Neg mg/dL (NEG) Urine Ketones (Stick) Neg mg/dL (NEG) Urine Blood Neg (NEG) Urine Nitrite Neg (NEG) Urine Bilirubin Neg (NEG) Urine Urobilinogen Dipstick 0.2 mg/dL (0.2 mg/dL) Urine Leukocyte Esterase Neg (NEG) Urine RBC 1-2 /HPF (0-2) Urine WBC Occ /HPF (0-4) Urine Squamous Epithelial Cells Many /LPF Urine Bacteria Few /HPF (0-FEW) Urine Test Negative (NEG) White Blood Count 8.2 x10^3/uL (4.0-11.0) Red Blood Count 4.79 x10^6/uL (3.50-5.40) Hemoglobin 15.6 g/dL (12.0-15.5) H Hematocrit 46.8 % (36.0-47.0) Mean Corpuscular Volume 98 fL (79-100) Mean Corpuscular Hemoglobin 33 pg (25-35) Mean Corpuscular Hemoglobin Concent 33 g/dL (31-37) Red Cell Distribution Width 15.0 % (11.5-14.5) H Platelet Count 143 x10^3/uL (140-400) Neutrophils (%) (Auto) 55 % (31-73) Lymphocytes (%) (Auto) 35 % (24-48) Monocytes (%) (Auto) 7 % (0-9) Eosinophils (%) (Auto) 3 % (0-3) Basophils (%) (Auto) 1 % (0-3) Neutrophils # (Auto) 4.5 x10^3uL (1.8-7.7) Lymphocytes # (Auto) 2.9 x10^3/uL (1.0-4.8) Monocytes # (Auto) 0.5 x10^3/uL (0.0-1.1) Eosinophils # (Auto) 0.2 x10^3/uL (0.0-0.7) Basophils # (Auto) 0.0 x10^3/uL (0.0-0.2) Sodium Level 138 mmol/L (136-145) Potassium Level 4.6 mmol/L (3.5-5.1) Chloride Level 105 mmol/L (98-107) Carbon Dioxide Level 23 mmol/L (21-32) Anion Gap 10 (6-14) Blood Urea Nitrogen 12 mg/dL (7-20) Creatinine 0.6 mg/dL (0.6-1.0) Estimated GFR (Cockcroft-Gault) 109.6 BUN/Creatinine Ratio 20 (6-20) Glucose Level 91 mg/dL (70-99) Calcium Level 9.2 mg/dL (8.5-10.1) Magnesium Level 1.8 mg/dL (1.8-2.4) Total Bilirubin 0.7 mg/dL (0.2-1.0) Aspartate Amino Transferase (AST) 20 U/L (15-37) Alanine Aminotransferase (ALT) 30 U/L (14-59) Alkaline Phosphatase 251 U/L (46-116) H Total Protein 8.0 g/dL (6.4-8.2) Albumin 4.1 g/dL (3.4-5.0) Albumin/Globulin Ratio 1.1 (1.0-1.7) Lipase 89 U/L (73-393) EKG EKG [] Radiology/Procedures Radiology/Procedures CT abdomen and pelvis with by mouth and IV contrast Impressions: Radiology report was reviewed. Report showed wall thickening of the sigmoid colon and mild thickening of the descending colon consistent with nonspecific colitis. No abscess or perforation was seen. Gallbladder wall thickening versus pericholecystic fluid was also seen. This finding was not correlated with physical exam. Course & Med Decision Making Course & Med Decision Making Pertinent Labs and Imaging studies reviewed. (See chart for details) All labs were reviewed as well as all findings of the CT scan. Transfer for evaluation by surgery was declined. Admission for observation was declined. Dragon Disclaimer Dragon Disclaimer This chart was dictated in whole or in part using Voice Recognition software in a busy, high-work load, and often noisy Emergency Department environment. It may contain unintended and wholly unrecognized errors or omissions. Departure Departure: Impression: Primary Impression: Back pain Disposition: HOME, SELF-CARE Condition: STABLE Referrals: JOSE BURNS MD (PCP) Patient Instructions: Back Pain, Adult Additional Instructions: Rima was seen in the emergency department for right-sided back pain. No emergency medical condition was found on history or physical exam. She did have normal labs with the exception of an elevated alkaline phosphatase level. Her CT scan was normal with the exception of mild nonspecific colitis which may be the cause of her pain. There is no signs of bacterial infection. She was strongly advised to return to the emergency room if she develops new or worsening symptoms. She was also advised follow-up with her primary care doctor as soon as possible for further management. Problem Qualifiers Primary Impression: Back pain Back pain location: back pain in unspecified location Chronicity: unspecified Back pain laterality: right Qualified Codes: M54.9 - Dorsalgia, unspecified MICHELLE SALEH MD Jan 21, 2017 18:13
== END 2017-01-21 18:20 | disposition home or self-care (01) ==
LOC: ER 15:46
DX: M54.89 Other dorsalgia (principal); R10.9 Unspecified abdominal pain; I50.9 Heart failure, unspecified; K58.9 Irritable bowel syndrome, unspecified; Z90.49 Acquired absence of other specified parts of digestive tract
CPT/HCPCS: 36415; 74177; 80053; 81001; 81025; 83690; 83735; 85025; 96361; 96374; 99285; J0780; Q9967; J7030

== ENCOUNTER 2017-01-31 16:40 | Emergency (ER) | payer SELFPAY ==
[~2017-01-31] VITALS: Ht 162.6 cm; Wt 56.2 kg
[2017-01-31 16:50] VITALS: BP 118/68
[2017-01-31] MEDS ORDERED: VALA1000 PO (17:17)
[2017-01-31] MEDS ORDERED: TRAM50TA PO (17:17)
--- NOTE | 2017-01-31 17:20 | PHYS DOC ---
General Chief Complaint: SKIN PROBLEM Stated Complaint: LOWER BACK PAINAND ABMN Time Seen by MD: 16:44 Source: patient, old records Exam Limitations: no limitations Problems: History of Present Illness Initial Comments Patient is a 41-year-old female who comes to the emergency department complaining of painful rash. Patient states that for the past 2 days she's had a rash in her T 10 dermatome at the left side of her lower back and abdomen. She says in the days preceding vesicular eruption she had hyperesthesia, numbness tingling burning and severe discomfort at different intervals. She developed small blisters which have scabbed over and remained very painful. She denies any new known exposures specifically no skin contacts to that area which could've caused this skin eruption. No fever chills sweats or myalgias. Patient has numerous ED visits both here and at [facility] for chronic pain complaints. She states she has run out of her tramadol and has a scheduled appointment with her primary care doctor Jenny in 2 days on Thursday. Her ED vital signs are stable she continues to smoke cigarettes. When asked she confirms that she had chickenpox as a child. Timing/Duration: getting worse Severity: severe Modifying Factors: improves with other Associated Symptoms: rash Allergies: Coded Allergies: No Known Drug Allergies (Unverified , 12/21/16) Past Medical History Medical History: other (hepatitis C, chronic back and abdominal pain, opiate addiction, history of IV drug use including heroin, noncompliance with medical treatment) Surgical History: other Social History Smoker: cigarettes Alcohol: none Drugs: heroin Review of Systems Constitutional: denies chills, denies fever, denies malaise Respiratory: denies cough, denies shortness of breath Cardiovascular: denies chest pain, denies palpitations Gastrointestinal: denies abdominal pain, denies nausea, denies vomiting Musculoskeletal: see HPI Skin: see HPI Psychiatric/Neurological: see HPI Physical Exam General Appearance: mild distress (disheveled appears older than stated age poor dentition) Eyes: bilateral eye normal inspection, bilateral eye PERRL, bilateral eye EOMI Ear, Nose, Throat: hearing grossly normal (poor dentition), normal ENT inspection, normal pharynx Neck: non-tender, supple Respiratory: normal breath sounds, no respiratory distress Cardiovascular: normal peripheral pulses, regular rate, rhythm Gastrointestinal: non tender, soft Back: no CVA tenderness, no vertebral tenderness Extremities: non-tender, normal inspection Neurologic/Psychiatric: 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 She is in agreement that she has been sober from heroin and does not want to cross over that edge again. I discussed [id number] medications as well as prescription medications and need for follow-up with her doctor. I agreed to subcutaneous morphine in the emergency department to get ahead of her pain and then a short course of tramadol until she get in with her doctor on Thursday. She was advised to stop smoking her questions were answered she expressed agreement and understanding with the treatment plan. Departure Time of Disposition: 17:17 Disposition: 01 HOME, SELF-CARE Diagnosis: shingles, hepatitis, h/o opiate dependence Condition: STABLE Patient Instructions: Keturah, [id number] Additional Instructions: Please review the patient education materials given to you by the ED staff. The intramuscular morphine given in the ED is meant to help he get ahead of your pain. [id number] diphenhydramine as needed as an adjunct for symptom control. Prescription: Tramadol 50 mg quantity 10, Valtrex Follow-up with Dr. Alvarado Thursday as scheduled. Return to ED with new or changing symptoms. CIRILO QUIROZ DO Jan 31, 2017 17:20
[2017-01-31] MEDS ORDERED: MORPHINE SULFATE 10 MG/ML SYRINGE. SQ ONE (18:00)
== END 2017-01-31 18:03 | disposition home or self-care (01) ==
LOC: ER 16:40
DX: B02.9 Zoster without complications (principal); K75.9 Inflammatory liver disease, unspecified; F11.20 Opioid dependence, uncomplicated; G89.29 Other chronic pain; F19.10 Other psychoactive substance abuse, uncomplicated; F17.210 Nicotine dependence, cigarettes, uncomplicated; Z86.19 Personal history of other infectious and parasitic diseases
CPT/HCPCS: 96372; 99283; J2270

== ENCOUNTER 2018-05-25 20:29 | Inpatient (IN) | payer BC ==
[~2018-05-25] VITALS: Ht 160 cm; Wt 62.1 kg
[~2018-05-25 20:29] MED LIST changes: +VALA1000 PO
--- NOTE | 2018-05-25 20:32 | ED.ADGEN ---
Past History Past Medical History: CAD, CHF, Other Past Surgical History: , Tonsillectomy, Other Alcohol Use: None Drug Use: Heroin, Opiates Adult General Chief Complaint Chief Complaint ".. I ve had endocarditis... and I ve got a bad Tricuspid value.. Because I had endocarditis... And have follow-up at to have a transesophageal echo to evaluate my tricuspid valve... I have been having some fever and chills last couple days and then I develop this chest pain that had for the last 24 hours. HPI HPI Patient is a 42 year old female who presents with above hx is central chest pain. Pt. rates pain as 7/10. Pain present for past 24 hours. 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 Patient has a history of congestive heart failure, hypertension, chronic hepatitis C, and chronic pain. Patient scheduled for a transesophageal echo. At for evaluation of her tricuspid regurgitation. Pt. follows with a Dr. Rahman and Dr. Lara , Dr. Alvarado. Review of Systems Review of Systems Constitutional: History of fever or chills [] Eyes: Denies change in visual acuity, redness, or eye pain [] HENT: Denies nasal congestion or sore throat [] Respiratory: Denies cough or shortness of breath [] Cardiovascular: No additional information not addressed in HPI [] GI: Denies abdominal pain, nausea, vomiting, bloody stools or diarrhea [] : Denies dysuria or hematuria [] Musculoskeletal: Denies back pain or joint pain [] Integument: Denies rash or skin lesions [] Neurologic: Denies headache, focal weakness or sensory changes [] Endocrine: Denies polyuria or polydipsia [] All other systems were reviewed and found to be within normal limits, except as documented in this note. Family History Family History Noncontributory Current Medications Current Medications Current Medications Medications (Trade) Dose Ordered Sig/Latrell Start Time Stop Time Status Last Admin Dose Admin Lactated Ringer's 1,000 ml @ 1,000 mls/hr Q1H 05/25/18 20:33 05/25/18 21:32 DC 05/25/18 20:33 1,000 MLS/HR Allergies Allergies Allergies Coded Allergies Type Severity Reaction Last Updated Verified No Known Drug Allergies 05/25/18 No Physical Exam Physical Exam Constitutional: Moderate acute distress, non-toxic appearance. [] HENT: Normocephalic, atraumatic, bilateral external ears normal, oropharynx moist, no oral exudates, nose normal. [] Eyes: PERRLA, EOMI, conjunctiva normal, no discharge. [] Neck: Normal range of motion, no tenderness, supple, no stridor. [] Cardiovascular: Tachycardia Heart rate regular rhythm, tricuspid murmur [] Lungs & Thorax: Bilateral breath sounds equal at apex with scattered wheezes on auscultation [] Abdomen: Bowel sounds normal, soft, no tenderness, no masses, no pulsatile masses. [] Old surgery scars. Skin: Warm, dry, no erythema, no rash. [] Back: No tenderness, no CVA tenderness. [] Extremities: No tenderness, no cyanosis, no clubbing, ROM intact, no edema. [] Neurologic: Alert and oriented X 3, normal motor function, normal sensory function, no focal deficits noted. [] Psychologic: Affect anxious, judgement normal, mood normal. [] Current Patient Data Vital Signs Vital Signs Date Time Temp Pulse Resp B/P (MAP) Pulse Ox O2 Delivery O2 Flow Rate FiO2 05/25/18 20:49 98.1 111 17 98 Room Air Lab Results Laboratory Tests Test 05/25/18 20:50 05/25/18 21:20 White Blood Count 13.8 x10^3/uL (4.0-11.0) H Red Blood Count 5.13 x10^6/uL (3.50-5.40) Hemoglobin 16.5 g/dL (12.0-15.5) H Hematocrit 49.5 % (36.0-47.0) H Mean Corpuscular Volume 97 fL (79-100) Mean Corpuscular Hemoglobin 32 pg (25-35) Mean Corpuscular Hemoglobin Concent 33 g/dL (31-37) Red Cell Distribution Width 14.0 % (11.5-14.5) Platelet Count 312 x10^3/uL (140-400) # Neutrophils (%) (Auto) 45 % (31-73) Lymphocytes (%) (Auto) 43 % (24-48) Monocytes (%) (Auto) 6 % (0-9) Eosinophils (%) (Auto) 4 % (0-3) H Basophils (%) (Auto) 1 % (0-3) Neutrophils # (Auto) 6.3 x10^3uL (1.8-7.7) Lymphocytes # (Auto) 5.9 x10^3/uL (1.0-4.8) H Monocytes # (Auto) 0.9 x10^3/uL (0.0-1.1) Eosinophils # (Auto) 0.6 x10^3/uL (0.0-0.7) Basophils # (Auto) 0.2 x10^3/uL (0.0-0.2) Prothrombin Time 11.1 SEC (9.4-11.4) Prothrombin Time INR 1.1 (0.9-1.1) PTT 28 SEC (23-33) D-Dimer (Sandra) 0.31 mg/L (0.00-0.50) Sodium Level 140 mmol/L (136-145) Potassium Level 4.5 mmol/L (3.5-5.1) Chloride Level 103 mmol/L (98-107) Carbon Dioxide Level 28 mmol/L (21-32) Anion Gap 9 (6-14) Blood Urea Nitrogen 17 mg/dL (7-20) Creatinine 0.9 mg/dL (0.6-1.0) Estimated GFR (Cockcroft-Gault) 68.3 Glucose Level 91 mg/dL (70-99) Calcium Level 10.3 mg/dL (8.5-10.1) H Magnesium Level 1.6 mg/dL (1.8-2.4) L Total Bilirubin 0.3 mg/dL (0.2-1.0) Direct Bilirubin 0.1 mg/dL (0.0-0.2) Aspartate Amino Transferase (AST) 19 U/L (15-37) Alanine Aminotransferase (ALT) 28 U/L (14-59) Alkaline Phosphatase 138 U/L (46-116) H Creatine Kinase 28 U/L (26-192) Troponin I Quantitative < 0.017 ng/mL (0-0.055) XE-Orv-G-Type Natriuretic Peptide 168 pg/mL (0-124) H Total Protein 8.3 g/dL (6.4-8.2) H Albumin 4.2 g/dL (3.4-5.0) Lipase 201 U/L (73-393) Serum Test, Qualitative Negative (NEG) Urine Collection Type Unknown Urine Color Yellow Urine Clarity Hazy Urine pH 6.5 Urine Specific [place] 1.015 Urine Protein Neg (NEG-TRACE) Urine Glucose (UA) Neg mg/dL (NEG) Urine Ketones (Stick) Neg mg/dL (NEG) Urine Blood Neg (NEG) Urine Nitrite Pos (NEG) Urine Bilirubin Neg (NEG) Urine Urobilinogen Dipstick 0.2 mg/dL (0.2 mg/dL) Urine Leukocyte Esterase Neg (NEG) Urine RBC Occ /HPF (0-2) Urine WBC Occ /HPF (0-4) Urine Squamous Epithelial Cells Mod /LPF Urine Bacteria Many /HPF (0-FEW) Urine Opiates Screen Neg (NEG) Urine Methadone Screen Neg (NEG) Urine Barbiturates Neg (NEG) Urine Phencyclidine Screen Neg (NEG) Urine Amphetamine/Methamphetamine Neg (NEG) Urine Benzodiazepines Screen Neg (NEG) Urine Cocaine Screen Neg (NEG) Urine Cannabinoids Screen Neg (NEG) Urine Ethyl Alcohol Neg (NEG) EKG EKG My interpretation EKG shows a sinus tachycardia at 107 bpm. There is left atrial bimodal P-wave's right axis deviation as well as right ventricular hypertrophic changes. There is some nonspecific anterior lateral changes.[] Radiology/Procedures Radiology/Procedures My interpretation of chest x-ray shows no acute cardiopulmonary findings.[] Course & Med Decision Making Course & Med Decision Making Pertinent Labs and Imaging studies reviewed. (See chart for details) Heart Score- [address] Lee for further eval and tx. Pt. will be started on antibiotics because of fever complaints and hx endocarditis. Consult to Cardiology [] Final Impression Final Impression 1.Chest Pain 2. Tricuspid dysfunction- regurgitation 3. Hypomagnesemia 1.5 4. History of endocarditis[] 5. History of hypertension 6. History of Polysubstance Abuse and Tobacco use 7. History of CHF 8. Hx of Hepatitis C 9. Leukocytosis 13.8 Dragon Disclaimer Dragon Disclaimer This electronic medical record was generated, in whole or in part, using a voice recognition dictation system. Dragon Disclaimer This chart was dictated in whole or in part using Voice Recognition software in a busy, high-work load, and often noisy Emergency Department environment. It may contain unintended and wholly unrecognized errors or omissions. Discharge Summary Visit Information Final Diagnosis Problems Medical Problems: (1) Chest pain Status: Acute Brief Hospital Course Allergies Allergies Coded Allergies Type Severity Reaction Last Updated Verified No Known Drug Allergies 05/25/18 No Vital Signs Vital Signs Date Time Temp Pulse Resp B/P (MAP) Pulse Ox O2 Delivery O2 Flow Rate FiO2 05/25/18 20:49 98.1 111 17 98 Room Air Lab Results Laboratory Tests Test 05/25/18 20:50 05/25/18 21:20 White Blood Count 13.8 x10^3/uL (4.0-11.0) Red Blood Count 5.13 x10^6/uL (3.50-5.40) Hemoglobin 16.5 g/dL (12.0-15.5) Hematocrit 49.5 % (36.0-47.0) Mean Corpuscular Volume 97 fL (79-100) Mean Corpuscular Hemoglobin 32 pg (25-35) Mean Corpuscular Hemoglobin Concent 33 g/dL (31-37) Red Cell Distribution Width 14.0 % (11.5-14.5) Platelet Count 312 x10^3/uL (140-400) Neutrophils (%) (Auto) 45 % (31-73) Lymphocytes (%) (Auto) 43 % (24-48) Monocytes (%) (Auto) 6 % (0-9) Eosinophils (%) (Auto) 4 % (0-3) Basophils (%) (Auto) 1 % (0-3) Neutrophils # (Auto) 6.3 x10^3uL (1.8-7.7) Lymphocytes # (Auto) 5.9 x10^3/uL (1.0-4.8) Monocytes # (Auto) 0.9 x10^3/uL (0.0-1.1) Eosinophils # (Auto) 0.6 x10^3/uL (0.0-0.7) Basophils # (Auto) 0.2 x10^3/uL (0.0-0.2) Prothrombin Time 11.1 SEC (9.4-11.4) Prothromb Time International Ratio 1.1 (0.9-1.1) Activated Partial Thromboplast Time 28 SEC (23-33) D-Dimer (Sandra) 0.31 mg/L (0.00-0.50) Sodium Level 140 mmol/L (136-145) Potassium Level 4.5 mmol/L (3.5-5.1) Chloride Level 103 mmol/L (98-107) Carbon Dioxide Level 28 mmol/L (21-32) Anion Gap 9 (6-14) Blood Urea Nitrogen 17 mg/dL (7-20) Creatinine 0.9 mg/dL (0.6-1.0) Estimated GFR (Cockcroft-Gault) 68.3 Glucose Level 91 mg/dL (70-99) Calcium Level 10.3 mg/dL (8.5-10.1) Magnesium Level 1.6 mg/dL (1.8-2.4) Total Bilirubin 0.3 mg/dL (0.2-1.0) Direct Bilirubin 0.1 mg/dL (0.0-0.2) Aspartate Amino Transf (AST/SGOT) 19 U/L (15-37) Alanine Aminotransferase (ALT/SGPT) 28 U/L (14-59) Alkaline Phosphatase 138 U/L (46-116) Creatine Kinase 28 U/L (26-192) Troponin I Quantitative < 0.017 ng/mL (0-0.055) BC-Hnl-E-Type Natriuretic Peptide 168 pg/mL (0-124) Total Protein 8.3 g/dL (6.4-8.2) Albumin 4.2 g/dL (3.4-5.0) Lipase 201 U/L (73-393) Serum Test, Qualitative Negative (NEG) Urine Collection Type Unknown Urine Color Yellow Urine Clarity Hazy Urine pH 6.5 Urine Specific [place] 1.015 Urine Protein Neg (NEG-TRACE) Urine Glucose (UA) Neg mg/dL (NEG) Urine Ketones (Stick) Neg mg/dL (NEG) Urine Blood Neg (NEG) Urine Nitrite Pos (NEG) Urine Bilirubin Neg (NEG) Urine Urobilinogen Dipstick 0.2 mg/dL (0.2 mg/dL) Urine Leukocyte Esterase Neg (NEG) Urine RBC Occ /HPF (0-2) Urine WBC Occ /HPF (0-4) Urine Squamous Epithelial Cells Mod /LPF Urine Bacteria Many /HPF (0-FEW) Urine Opiates Screen Neg (NEG) Urine Methadone Screen Neg (NEG) Urine Barbiturates Neg (NEG) Urine Phencyclidine Screen Neg (NEG) Urine Amphetamine/Methamphetamine Neg (NEG) Urine Benzodiazepines Screen Neg (NEG) Urine Cocaine Screen Neg (NEG) Urine Cannabinoids Screen Neg (NEG) Urine Ethyl Alcohol Neg (NEG) Brief Hospital Course Ms. Colón is a 42 old female who presented with CP. Hx. Endocarditis. Admit Dr. Bush Discharge Information Condition at Discharge: Improved, Stable Dischare Medications Current Medications Lactated Ringer's 1,000 ml @ 1,000 mls/hr Q1H IV Last administered on at 20:33; Admin Dose 1,000 MLS/HR; Start 05/25/18 at 20:33; Stop 05/25/18 at 21:32; Status DC Active Scripts Active Tramadol Hcl (Tramadol HCl) 50 Mg Tablet 50 Mg PO PRN Q6HRS PRN Valacyclovir (Valacyclovir Hcl) 1,000 Mg Tablet 1 Tab PO TID Dicyclomine Hcl 20 Mg Tablet 1 Tab PO QID Tramadol Hcl (Tramadol HCl) 50 Mg Tablet 50 Mg PO PRN Q6HRS PRN Tramadol Hcl (Tramadol HCl) 50 Mg Tablet 50 Mg PO PRN Q6HRS PRN ANETTE HOOPER MD May 25, 2018 20:32
[2018-05-25] MEDS ORDERED: IV RINGERS SOLUTION,LACTATED 1,000 ML IV SCH (20:33)
[2018-05-25 21:11] LABS: BASO # 0.2 x10^3/uL (0.0-0.2); BASO % 1 % (0-3); EOS # 0.6 x10^3/uL (0.0-0.7); EOS % 4 % (0-3); HEMATOCRIT 49.5 % (36.0-47.0); HEMOGLOBIN 16.5 g/dL (12.0-15.5); LYMPH # 5.9 x10^3/uL (1.0-4.8); LYMPH % 43 % (24-48); MEAN CORPUSCULAR HEMOGLOBIN 32 pg (25-35); MEAN CORPUSCULAR HGB CONC 33 g/dL (31-37); MEAN CORPUSCULAR VOLUME 97 fL (79-100); MONO # 0.9 x10^3/uL (0.0-1.1); MONO % 6 % (0-9); NEUT # 6.3 x10^3uL (1.8-7.7); NEUT % 45 % (31-73); PLATELET COUNT 312 x10^3/uL (140-400); RED BLOOD COUNT 5.13 x10^6/uL (3.50-5.40); WHITE BLOOD COUNT 13.8 x10^3/uL (4.0-11.0)
[2018-05-25 21:28] LABS: ALBUMIN 4.2 g/dL (3.4-5.0); CALCIUM 10.3 mg/dL (8.5-10.1); CREATININE 0.9 mg/dL (0.6-1.0); DIRECT BILIRUBIN 0.1 mg/dL (0.0-0.2); GFR 68.3; MAGNESIUM 1.6 mg/dL (1.8-2.4); POTASSIUM 4.5 mmol/L (3.5-5.1); TOTAL BILIRUBIN 0.3 mg/dL (0.2-1.0); TOTAL PROTEIN 8.3 g/dL (6.4-8.2)
[2018-05-25] MEDS ORDERED: ONDANSETRON PF 4 MG/2 ML VIAL. IV PRN (22:00)
[2018-05-25] MEDS ORDERED: VANCOMYCIN PER PHARMACY MC PRN (22:00)
[2018-05-25] MEDS ORDERED: VANCOMYCIN 1 GM in IV NORMAL SALINE 250ML 250 ML IV ONE (22:00)
[2018-05-25 22:03] LABS: PREG TEST PT QUAL NEGATIVE (NEG)
[2018-05-25 22:29] LABS: BARBITURATES NEG (NEG); BENZODIAZEPINES NEG (NEG); CANNABINOIDS NEG (NEG); COCAINE NEG (NEG); METHADONE NEG (NEG); OPIATES NEG (NEG); PHENCYCLIDINE NEG (NEG)
[2018-05-25] MEDS ORDERED: IV NORMAL SALINE 100ML 100 ML ONE (22:29)
[2018-05-25] MEDS ORDERED: MAGNESIUM SULFATE 2GM 50 ML IV ONE (22:30)
[2018-05-25 22:31] LABS: AMPHETAMINE/METHAMPHETAMINE NEG (NEG)
--- NOTE | 2018-05-25 22:32 | RAD ---
Chest radiograph 05/25/2018 9:22 PM INDICATION: Chest pain, endocarditis COMPARISON: Acute abdominal series November 30, 2016 TECHNIQUE: Frontal and lateral views of the chest are provided. FINDINGS: The cardiomediastinal silhouette is within normal limits. There are no pleural effusions. There is no pulmonary vascular congestion. There is no pneumothorax. The lungs are clear. Linear densities in the left midlung most favor scarring. No significant osseous abnormality is identified. IMPRESSION: No acute cardiopulmonary process. Electronically signed by: Charisma De Luna MD (05/25/2018 10:29 PM) [facility]
[2018-05-25 22:47] LABS: BILIRUBIN,URINE NEG (NEG); CLARITY,URINE HAZY; COLOR,URINE YELLOW; GLUCOSE,URINE NEG (NEG)
[2018-05-25 22:48] LABS: BACTERIA,URINE MANY /HPF (0-FEW); NITRITE,URINE POS (NEG); RBC,URINE OCC /HPF (0-2); SQUAMOUS EPITHELIAL CELL,UR MOD /LPF; UROBILINOGEN,URINE 0.2 mg/dL (0.2 mg/dL); WBC,URINE OCC /HPF (0-4)
[2018-05-25 23:05] VITALS: BP 92/79
[2018-05-25] MEDS ORDERED: VANCOMYCIN 1.5 GM in IV NORMAL SALINE 500ML 500 ML IV ONE (23:15)
[2018-05-25] MEDS ORDERED: CARV3.1230 PO (23:38)
[2018-05-25] MEDS ORDERED: ALPR1TAB2 PO (23:38)
[2018-05-25] MEDS ORDERED: LISI2.5T PO (23:38)
[2018-05-25] MEDS ORDERED: SPIR25TA5 PO (23:38)
[2018-05-25] MEDS ORDERED: TRAM50TA PO (23:38)
--- NOTE | 2018-05-26 02:54 | EKG ---
[address] [address] Test Date: 2018-05-25 Test Time: 20:45:39 Pat Name: FELIX CANNON Department: Room: [place] [address] Gender: F Import Clerk: : 1975 Requested By: ANETTE HOOPER Order Number: [id number] Reading MD: Alexandro West Measurements Intervals [place] Rate: 107 P: 25 FL: 142 QRS: 122 QRSD: 108 T: 64 QT: 346 QTc: 461 Interpretive Statements SINUS TACHYCARDIA LEFT ATRIAL ABNORMALITY INCOMPLETE RIGHT BUNDLE BRANCH BLOCK Electronically Signed On 05-26-2018 9:14:49 POCKET MARKER by Alexandro West
[2018-05-26 03:31] VITALS: BP 93/66
[2018-05-26] MEDS ORDERED: IPRATRPIUM/ALBUTEROL 0.5/2.5MG 3 ML NEBU. ONE (04:40)
[2018-05-26 06:39] LABS: BASO % 0 % (0-3); EOS # 0.4 x10^3/uL (0.0-0.7); EOS % 3 % (0-3); HEMATOCRIT 44.7 % (36.0-47.0); HEMOGLOBIN 14.7 g/dL (12.0-15.5); LYMPH # 5.2 x10^3/uL (1.0-4.8); LYMPH % 44 % (24-48); MEAN CORPUSCULAR HEMOGLOBIN 32 pg (25-35); MEAN CORPUSCULAR HGB CONC 33 g/dL (31-37); MEAN CORPUSCULAR VOLUME 96 fL (79-100); MONO # 0.7 x10^3/uL (0.0-1.1); MONO % 6 % (0-9); NEUT # 5.5 x10^3uL (1.8-7.7); NEUT % 47 % (31-73); PLATELET COUNT 231 x10^3/uL (140-400); RED BLOOD COUNT 4.66 x10^6/uL (3.50-5.40); RED CELL DISTRIBUTION WIDTH 13.8 % (11.5-14.5); WHITE BLOOD COUNT 11.9 x10^3/uL (4.0-11.0)
[2018-05-26 06:49] LABS: CALCIUM 8.5 mg/dL (8.5-10.1); CREATININE 0.7 mg/dL (0.6-1.0); GFR 91.3; POTASSIUM 3.8 mmol/L (3.5-5.1)
[2018-05-26] MEDS: traMADol 50 MG TABLET PO PRN ×2 (07:21)
[2018-05-26] MEDS: ALPRAZolam 0.5 MG TABLET PO SCH ×2 (07:22)
[2018-05-26] MEDS ORDERED: IPRATRPIUM/ALBUTEROL 0.5/2.5MG 3 ML NEBU. NEB SCH (08:00)
[2018-05-26] MEDS ORDERED: CARVEDILOL 3.125 MG TABLET PO SCH (08:00)
[2018-05-26 08:16] VITALS: BP 88/59
[2018-05-26 08:16] LABS: MAGNESIUM 2.1 mg/dL (1.8-2.4)
[2018-05-26] MEDS ORDERED: LACTOBACILLUS RHAMNOSUS GG 1 CAPSULE. PO SCH (09:00)
[2018-05-26] MEDS ORDERED: LISINOPRIL 2.5 MG TABLET PO SCH ×2 (09:00→21:00)
[2018-05-26] MEDS ORDERED: SPIRONOLACTONE 25 MG TABLET PO SCH (09:00)
--- NOTE | 2018-05-26 09:53 | PDOC2 ---
CONSULT Date of Admission DATE: 05/26/18 TIME: 09:53 Reason for Consult: chest pain Problem List Problems Medical Problems: (1) Chest pain Status: Acute History of Present Illness Ms Colón is a 42 year old female who presents with history of iv drug use related endocarditis and severe tricuspid valve disease and was hospitalized for a significant part of July 2016. She has since stopped drug use and established care with . She reports she is supposed to have a MIKO there tomorrow and would prefer to be at . She presented yesterday to the ED with complaints of central chest pain, constant for > 24 hours, which is a little worse with deep inspiration and is worse in supine position. She complains of epigastric discomfort and headache. She reports a low functional capacity and an appointment to see CTS for possible valve surgery at in the next several weeks. She was admitted with a mild WBC elevation and started on antibiotics. Consult was called. Past Medical History Sepsis, acute hypoxic respiratory failure Endocarditis from Septic emboli, IV drug use Resp failure requiring Vent Polysubstance abuse Hepatitis C, Tobacco use Renal insufficiency Pneumonia Anemia requiring transfusions, sepsis, thrombocytosis, reactive severe malnutrition, was POA, weight loss prior to admit, albumin low Metabolic acidosis and respi alkalosis HYpoxemia IE PUlm edema Past Medical History Cardiovascular: No pertinent hx Pulmonary: No pertinent hx GI: Other Heme/Onc: No pertinent hx Hepatobiliary: Hep A/B/C Psych: Addictions Rheumatologic: No pertinent hx Renal/: No pertinent hx Endocrine: No pertinent hx Past Surgical History No pertinent history Family History No Significant Social History Smoke: No ALCOHOL: none Drugs: Heroin Current Medications Current Medications Lactated Ringer's 1,000 ml @ 1,000 mls/hr Q1H IV Last administered on at 20:33; Start 05/25/18 at 20:33; Stop 05/25/18 at 21:32; Status DC Lorazepam (Ativan) 1 mg 1X ONCE IV Last administered on 05/25/18at 22:21; Start 05/25/18 at 22:00; Stop 05/25/18 at 22:01; Status DC Vancomycin HCl 1 gm/Sodium Chloride 250 ml @ 250 mls/hr 1X ONCE IV ; Start at 22:00; Stop 05/25/18 at 22:59; Status UNV Ceftriaxone Sodium 2 gm/ Sodium Chloride 100 ml @ 200 mls/hr 1X ONCE IV Last administered on 05/25/18at 22:39; Start 05/25/18 at 22:30; Stop 05/25/18 at 22:59 ; Status DC Magnesium Sulfate 50 ml @ 25 mls/hr 1X ONCE IV Last administered on 05/26/18at 00:01; Start 05/25/18 at 22:30; Stop 05/26/18 at 00:29; Status DC Ondansetron HCl (Zofran) 4 mg PRN Q4HRS PRN IV NAUSEA/VOMITING; Start 05/25/18 at 22:00; Stop 05/26/18 at 21:59 Albuterol/ Ipratropium (Duoneb) 3 ml RTQID NEB ; Start 05/26/18 at 08:00; Stop 05/27/18 at 07:59 Vancomycin HCl (Vanco Per Pharmacy) 1 each PRN DAILY PRN MC SEE COMMENTS Last administered on 05/25/18at 23:11; Start 05/25/18 at 22:00 Ceftriaxone Sodium 2 gm/ Sodium Chloride 100 ml @ 200 mls/hr Q24H IV ; Start at 21:00 Ceftriaxone Sodium (Rocephin) 2 gm STK-MED ONCE IV ; Start 05/25/18 at 22:29; Stop 05/25/18 at 22:30; Status DC Sodium Chloride 100 ml @ As Directed STK-MED ONCE .ROUTE ; Start 05/25/18 at 22 :29; Stop 05/25/18 at 22:30; Status DC Vancomycin HCl 1.5 gm/Sodium Chloride 500 ml @ 250 mls/hr 1X ONCE IV Last administered on 05/26/18at 00:01; Start 05/25/18 at 23:15; Stop 05/26/18 at 01:14 ; Status DC Vancomycin HCl 1 gm/Sodium Chloride 250 ml @ 250 mls/hr Q12H IV ; Start at 10:00 Vancomycin HCl (Vancomycin Trough Level) 1 each 1X ONCE MC ; Start 05/27/18 at 21:30; Stop 05/27/18 at 21:31 Carvedilol (Coreg) 3.125 mg DAILYWBKFT PO Last administered on 05/26/18at 07:22 ; Start 05/26/18 at 08:00 Tramadol HCl (Ultram) 50 mg PRN Q6HRS PRN PO PAIN Last administered on at 07:21; Start 05/25/18 at 23:30 Alprazolam (Xanax) 1 mg BID PO Last administered on 05/26/18at 07:22; Start at 00:30 Lisinopril (Prinivil) 2.5 mg DAILY PO ; Start 05/26/18 at 09:00 Spironolactone (Aldactone) 25 mg DAILY PO ; Start 05/26/18 at 09:00 Albuterol/ Ipratropium (Duoneb) 3 ml STK-MED ONCE .ROUTE ; Start 05/26/18 at 04: 40; Stop 05/26/18 at 04:41; Status DC Lactobacillus Rhamnosus (Culturelle) 1 cap BID PO ; Start 05/26/18 at 09:00 Active Scripts Active Reported Spironolactone 25 Mg Tablet 1 Tab PO DAILY Carvedilol (Carvedilol) 3.125 Mg Tablet 3.125 Mg PO DAILY Lisinopril 2.5 Mg Tablet 1 Tab PO DAILY Xanax (Alprazolam) 1 Mg Tablet 1 Tab PO BID Tramadol Hcl (Tramadol HCl) 50 Mg Tablet 50 Mg PO PRN Q6HRS PRN Allergies: Coded Allergies: No Known Drug Allergies (Unverified , 05/25/18) Review of System as per HPI General: Alert, Oriented X3, Cooperative, No acute distress HEENT: Atraumatic Lungs: Clear to auscultation Heart: Normal S1, Normal S2, Rubs, Other (+ murmur, no gallops, clicks or rubs) Abdomen: Normal bowel sounds, Soft, No tenderness Extremities: No cyanosis, No edema, Normal pulses Neuro: Normal speech, Strength at 5/5 X4 ext Psych/Mental Status: Mental status NL, Mood NL VITALS Vital Signs Date Time Temp Pulse Resp B/P (MAP) Pulse Ox O2 Delivery O2 Flow Rate FiO2 05/26/18 08:16 76 18 88/59 (69) 96 Room Air 05/25/18 23:05 97.5 Labs Laboratory Tests Test 05/25/18 20:50 05/25/18 21:20 05/25/18 21:51 05/25/18 22:00 White Blood Count 13.8 x10^3/uL (4.0-11.0) Red Blood Count 5.13 x10^6/uL (3.50-5.40) Hemoglobin 16.5 g/dL (12.0-15.5) Hematocrit 49.5 % (36.0-47.0) Mean Corpuscular Volume 97 fL (79-100) Mean Corpuscular Hemoglobin 32 pg (25-35) Mean Corpuscular Hemoglobin Concent 33 g/dL (31-37) Red Cell Distribution Width 14.0 % (11.5-14.5) Platelet Count 312 x10^3/uL (140-400) Neutrophils (%) (Auto) 45 % (31-73) Lymphocytes (%) (Auto) 43 % (24-48) Monocytes (%) (Auto) 6 % (0-9) Eosinophils (%) (Auto) 4 % (0-3) Basophils (%) (Auto) 1 % (0-3) Neutrophils # (Auto) 6.3 x10^3uL (1.8-7.7) Lymphocytes # (Auto) 5.9 x10^3/uL (1.0-4.8) Monocytes # (Auto) 0.9 x10^3/uL (0.0-1.1) Eosinophils # (Auto) 0.6 x10^3/uL (0.0-0.7) Basophils # (Auto) 0.2 x10^3/uL (0.0-0.2) Prothrombin Time 11.1 SEC (9.4-11.4) Prothromb Time International Ratio 1.1 (0.9-1.1) Activated Partial Thromboplast Time 28 SEC (23-33) D-Dimer (Sandra) 0.31 mg/L (0.00-0.50) Sodium Level 140 mmol/L (136-145) Potassium Level 4.5 mmol/L (3.5-5.1) Chloride Level 103 mmol/L (98-107) Carbon Dioxide Level 28 mmol/L (21-32) Anion Gap 9 (6-14) Blood Urea Nitrogen 17 mg/dL (7-20) Creatinine 0.9 mg/dL (0.6-1.0) Estimated GFR (Cockcroft-Gault) 68.3 Glucose Level 91 mg/dL (70-99) Calcium Level 10.3 mg/dL (8.5-10.1) Magnesium Level 1.6 mg/dL (1.8-2.4) Total Bilirubin 0.3 mg/dL (0.2-1.0) Direct Bilirubin 0.1 mg/dL (0.0-0.2) Aspartate Amino Transf (AST/SGOT) 19 U/L (15-37) Alanine Aminotransferase (ALT/SGPT) 28 U/L (14-59) Alkaline Phosphatase 138 U/L (46-116) Creatine Kinase 28 U/L (26-192) Troponin I Quantitative < 0.017 ng/mL (0-0.055) AV-Mov-K-Type Natriuretic Peptide 168 pg/mL (0-124) Total Protein 8.3 g/dL (6.4-8.2) Albumin 4.2 g/dL (3.4-5.0) Lipase 201 U/L (73-393) Serum Test, Qualitative Negative (NEG) Urine Collection Type Unknown Urine Color Yellow Urine Clarity Hazy Urine pH 6.5 Urine Specific [place] 1.015 Urine Protein Neg (NEG-TRACE) Urine Glucose (UA) Neg mg/dL (NEG) Urine Ketones (Stick) Neg mg/dL (NEG) Urine Blood Neg (NEG) Urine Nitrite Pos (NEG) Urine Bilirubin Neg (NEG) Urine Urobilinogen Dipstick 0.2 mg/dL (0.2 mg/dL) Urine Leukocyte Esterase Neg (NEG) Urine RBC Occ /HPF (0-2) Urine WBC Occ /HPF (0-4) Urine Squamous Epithelial Cells Mod /LPF Urine Bacteria Many /HPF (0-FEW) Urine Opiates Screen Neg (NEG) Urine Methadone Screen Neg (NEG) Urine Barbiturates Neg (NEG) Urine Phencyclidine Screen Neg (NEG) Urine Amphetamine/Methamphetamine Neg (NEG) Urine Benzodiazepines Screen Neg (NEG) Urine Cocaine Screen Neg (NEG) Urine Cannabinoids Screen Neg (NEG) Urine Ethyl Alcohol Neg (NEG) Erythrocyte Sedimentation Rate 4 (0-25) Lactic Acid Level 0.8 mmol/L (0.4-2.0) Test 05/26/18 05:48 White Blood Count 11.9 x10^3/uL (4.0-11.0) Red Blood Count 4.66 x10^6/uL (3.50-5.40) Hemoglobin 14.7 g/dL (12.0-15.5) Hematocrit 44.7 % (36.0-47.0) Mean Corpuscular Volume 96 fL (79-100) Mean Corpuscular Hemoglobin 32 pg (25-35) Mean Corpuscular Hemoglobin Concent 33 g/dL (31-37) Red Cell Distribution Width 13.8 % (11.5-14.5) Platelet Count 231 x10^3/uL (140-400) Neutrophils (%) (Auto) 47 % (31-73) Lymphocytes (%) (Auto) 44 % (24-48) Monocytes (%) (Auto) 6 % (0-9) Eosinophils (%) (Auto) 3 % (0-3) Basophils (%) (Auto) 0 % (0-3) Neutrophils # (Auto) 5.5 x10^3uL (1.8-7.7) Lymphocytes # (Auto) 5.2 x10^3/uL (1.0-4.8) Monocytes # (Auto) 0.7 x10^3/uL (0.0-1.1) Eosinophils # (Auto) 0.4 x10^3/uL (0.0-0.7) Basophils # (Auto) 0.0 x10^3/uL (0.0-0.2) Sodium Level 140 mmol/L (136-145) Potassium Level 3.8 mmol/L (3.5-5.1) Chloride Level 106 mmol/L (98-107) Carbon Dioxide Level 23 mmol/L (21-32) Anion Gap 11 (6-14) Blood Urea Nitrogen 13 mg/dL (7-20) Creatinine 0.7 mg/dL (0.6-1.0) Estimated GFR (Cockcroft-Gault) 91.3 Glucose Level 93 mg/dL (70-99) Calcium Level 8.5 mg/dL (8.5-10.1) Magnesium Level 2.1 mg/dL (1.8-2.4) Creatine Kinase 25 U/L (26-192) Troponin I Quantitative < 0.017 ng/mL (0-0.055) Images CXR - IMPRESSION: No acute cardiopulmonary process. Assessment/Plan 1. Chest pain, atypical for anginal pain. CE negative. no acute ischemic EKG changes. 2. Tricuspid regurgitation, severe - secondary to endocarditis. scheduled for MIKO tomorrow at . Most recent echo with normal LVEF and severe TR. Mobile mass noted on tricuspid valve. 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 3. Hypotension - mild and asymptomatic 4. history of polysubstance abuse. - UDS negative 5. tobaccoism - cessation encouraged. EDITA BERRY APRN May 26, 2018 09:53
[2018-05-26] MEDS ORDERED: VANCOMYCIN 1 GM in IV NORMAL SALINE 250ML 250 ML IV SCH (10:00)
[2018-05-26] MEDS ORDERED: IBUPROFEN 600 MG TABLET. PO PRN (11:00)
[2018-05-26 11:15] VITALS: BP 99/60
[2018-05-26] MEDS ORDERED: oxyCODONE/APAP 5/325 1 TAB TABLET PO PRN (11:30)
--- NOTE | 2018-05-26 18:16 | HP ---
ADMIT DATE: 05/25/2018 HISTORY OF PRESENT ILLNESS: The patient is a 42-year-old female patient who presented to the Emergency Room of [facility] with a history of central chest pain that she rated as 7/10 in severity that has been present for the last 24 hours. 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 She apparently has had an echocardiogram done recently, which showed that her left ventricular systolic function was normal; however, she is scheduled to have a transesophageal echocardiogram at [facility] tomorrow to evaluate for the vegetation of her tricuspid valve. She sees Dr. Lara. On evaluation in the Emergency Room, she was found to have leukocytosis with a white cell count of 13,800 and because of history of endocarditis, the patient was started on ceftriaxone as well as vancomycin and we did consult the Cardiology team. PAST MEDICAL HISTORY: Significant for respiratory failure with subsequent tracheostomy and decannulation, history of endocarditis, pneumonia, bilateral empyema treated with chest tube and TPA, history of anemia, thrombocytopenia, chronic hepatitis C, acute kidney injury, polysubstance abuse, depression and malnutrition. PAST SURGICAL HISTORY: Significant for bilateral chest tube placement, tracheostomy and percutaneous endoscopic colostomy tube placement. FAMILY HISTORY: Noncontributory. SOCIAL HISTORY: The patient is . She does smoke and occasionally drinks alcohol. She has extensive history of polysubstance abuse, apparently started after she has right rotator cuff surgery and then she was introduced by a friend to intravenous illicit drugs. ALLERGIES: She has no known drug allergies. MEDICATIONS: She is currently on following medications: She is on carvedilol 3.125 mg twice a day, lisinopril 2.5 mg once a day, spironolactone 25 mg daily, tramadol 50 mg every 6 hours, alprazolam 1 mg twice a day. REVIEW OF SYSTEMS: As per history of present illness. PHYSICAL EXAMINATION: GENERAL: On arrival to the Emergency Room, she apparently looked well and was clearly in no apparent respiratory distress, pale, but no jaundice, cyanosis, or thyromegaly. No jugular venous distension. No lower limb edema. VITAL SIGNS: Her heart rate was 111, blood pressure 101/66, temperature was 98.1, respiratory rate was 17 and oxygen saturation was 98%. HEAD, EYES, EARS, NOSE AND THROAT: Showed normocephalic, atraumatic. NECK: Supple. HEART: Showed normal first and second sounds. No gallop, rub or murmur. CHEST: Clear to auscultation. No crepitation or rhonchi. ABDOMEN: Distended, soft, nontender. No guarding or rigidity. No organomegaly. Hernial orifice intact. Bowel sounds normal. NEUROLOGIC: She is awake, alert, responding appropriately. She has no obvious neurological deficit. PSYCHIATRIC: Psychologically, she was anxious, but with normal mood and judgment. LABORATORY DATA: While in the Emergency Room, she has had lab work that showed a white cell count of 13,800, hemoglobin 16.5, hematocrit 49.5, MCV 97 and platelet count 312,000. Her chemistry showed serum sodium 140, potassium 4.5, chloride 103, bicarbonate 28, anion gap of 9, BUN 17, creatinine 0.9, estimated GFR was 68 mL per minute. Her calcium was 10.3, magnesium was 1.6. Total bilirubin, AST, ALT, alkaline phosphatase were normal. Her beta natriuretic peptide was 168. Total protein was 8.3, albumin was 4.2. Her serum test was negative. Her prothrombin time was 11.1, INR 1.1, aPTT was 28 and D-dimer was 0.31 mg/dL. Urinalysis was essentially unremarkable, although that is positive for nitrite and there are too many bacteria, but occasional wbc's and occasional rbc's. Her toxic screen was essentially negative and her nasal screen for MRSA PCR was negative. DIAGNOSTIC DATA: Her chest x-ray showed that the cardiomediastinal silhouette is within normal limits. There is no pleural effusion. There is no pulmonary vascular congestion. There is no pneumothorax. The lungs are clear. Linear densities in the left mid lung, most favor scarring. No significant osseous abnormalities identified. ASSESSMENT AND PLAN: The patient was admitted with chest pain, history of endocarditis, history of polysubstance abuse and tobacco use, congestive heart failure, and hepatitis C. She was started on IV vancomycin as well as ceftriaxone. We did consult our Cardiology team to assist with her management. YUMIKO FLORENTINO MD DR: MATEO/adele JOB#: [id number] / [id number]
--- NOTE | 2018-05-26 18:41 | DS ---
DATE OF DISCHARGE: 05/26/2018 HOSPITAL COURSE: The patient was admitted through the Emergency Room with possible endocarditis that she has history of tricuspid endocarditis with vegetation and apparently she was scheduled for transesophageal echocardiogram tomorrow at [facility]. She was seen in consultation by the Cardiology team who recommended that the patient be transferred to [facility]. Her chest pain was atypical. Her cardiac enzymes were negative and no ischemic changes on EKG. The patient apparently has tricuspid regurgitation, severe, secondary to endocarditis, and she was scheduled to have MIKO tomorrow. Her most recent echocardiogram had showed normal left ventricular ejection fraction, severe tricuspid regurgitation. She has a mobile mass noted in the tricuspid valve and they recommended that to contact the Cardiology team at and they spoke with the transfer team, who in turn spoke with Dr. Lara who kindly accepted her as a transfer to be under his care. PHYSICAL EXAMINATION: GENERAL: On examining her today, she looked well and was clearly in no apparent respiratory distress. No pallor, jaundice, cyanosis, or thyromegaly. No jugular venous distension. No limb edema. VITAL SIGNS: Her heart rate was 86, blood pressure was 99/60, temperature was 97.5, respiratory rate was 18 and oxygen saturation was 97%. HEAD, EYES, EARS, NOSE AND THROAT: Normocephalic, atraumatic. NECK: Supple. HEART: Showed normal first and second heart sounds. No gallop, rub or murmur. CHEST: Clear to auscultation. No crepitation or rhonchi. ABDOMEN: Distended, soft, nontender. NEUROLOGIC: She was awake, alert, responding appropriately. She ambulates without assistance or assistive devices. LABORATORY DATA: Her lab work this morning showed a white cell count of 11,900, hemoglobin 14.7, hematocrit 44.7, MCV 96, and platelet count 231,000. Her chemistry showed a serum sodium 140, potassium 3.8, chloride 106, bicarbonate 23, anion gap of 11, BUN 13, creatinine 0.7, estimated GFR was 91 mL per minute. Her glucose was 93, calcium was 8.5. She has 2 sets of cardiac enzymes that ruled out myocardial infarction. Her TSH was normal at 1.796. She was discharged or transferred to [facility] to continue on all her medications together with IV antibiotic in the form of vancomycin and Rocephin. FINAL DISCHARGE DIAGNOSES: Chest pain, atypical; myocardial infarction was ruled out. The patient has history of tricuspid regurgitation, severe, secondary to endocarditis and hypertension, history of polysubstance abuse, tobaccoism and chronic hepatitis C. YUMIKO FLORENTINO MD DR: MATEO/adele JOB#: [id number] / [id number]
== END 2018-05-26 15:31 | disposition short-term general hospital (02) | DRG 872 ==
LOC: ER 20:29 → ICU 21:50
PROVIDERS: ADMIT Internal Medicine; ATTEND Internal Medicine
DX: A41.9 Sepsis, unspecified organism (principal); N39.0 Urinary tract infection, site not specified; R07.89 Other chest pain; I07.1 Rheumatic tricuspid insufficiency; B18.2 Chronic viral hepatitis C; D72.829 Elevated white blood cell count, unspecified; F17.200 Nicotine dependence, unspecified, uncomplicated; I11.0 Hypertensive heart disease with heart failure; I95.9 Hypotension, unspecified; I25.10 Atherosclerotic heart disease of native coronary artery without angina pectoris; Z93.3 Colostomy status; I50.9 Heart failure, unspecified; F11.90 Opioid use, unspecified, uncomplicated; F32.9 Major depressive disorder, single episode, unspecified; G89.29 Other chronic pain; Z90.49 Acquired absence of other specified parts of digestive tract; Z71.6 Tobacco abuse counseling
CPT/HCPCS: 36415; 71046; 80048; 80076; 80307; 81001; 82550; 83605; 83690; 83735; 83880; 84443; 84484; 84703; 85025; 85379; 85610; 85651; 85730; 87040; 87086; 87641; 93005; 94640; 96361; 96374; 96375; 99406; J0696; J2060; J3370; J3475; J7040; J7050; J7120; 99285-25

== ENCOUNTER 2018-06-30 15:54 | Emergency (ER) | payer BC ==
[~2018-06-30] VITALS: Ht 160 cm; Wt 61.2 kg
[~2018-06-30 15:54] MED LIST changes: +ALPR1TAB2 PO; +CARV3.1230 PO; +LISI2.5T PO; +SPIR25TA5 PO
[2018-06-30 16:10] VITALS: BP 115/78
--- NOTE | 2018-06-30 16:24 | PHYS DOC ---
Past History Past Medical History: CAD, CHF, Other Past Surgical History: Appendectomy, , Tonsillectomy Alcohol Use: None Drug Use: Heroin Adult General Chief Complaint Chief Complaint: OVERDOSE HPI HPI Patient is a 42 year old female who brought in by EMS because of heroine overdose. Patient was found unresponsive by family member at the bathroom with a syringe of heroine around her. EMS reported patient was unresponsive and cyanotic and had 2 mg of Narcan intranasally with fast response and became alert and oriented with GCS of 15. Patient states she did not have any injection of heparin for 5 months and because of her back pain decided to take a small dose of heroine today and does not remember what happened after that. Patient has history of IV drug abuse and has this scheduled surgery next week for tricuspid valve injury related to IV drug abuse. Patient states she feels fine and denies pain, suicidal and homicidal ideation, hallucination. Patient doesn't want any treatment and wants to go home. Review of Systems Review of Systems Constitutional: Denies fever or chills [] Eyes: Denies change in visual acuity, redness, or eye pain [] HENT: Denies nasal congestion or sore throat [] Respiratory: Denies cough or shortness of breath [] Cardiovascular: No additional information not addressed in HPI [] GI: Denies abdominal pain, nausea, vomiting, bloody stools or diarrhea [] : Denies dysuria or hematuria [] Musculoskeletal: Denies back pain or joint pain [] Integument: Denies rash or skin lesions [] Neurologic: Denies headache, focal weakness or sensory changes [] Endocrine: Denies polyuria or polydipsia [] All other systems were reviewed and found to be within normal limits, except as documented in this note. Allergies Allergies Allergies Coded Allergies Type Severity Reaction Last Updated Verified No Known Drug Allergies 05/25/18 No Physical Exam Physical Exam Constitutional: Well nourished, no acute distress, non-toxic appearance. [] HENT: Normocephalic, atraumatic, bilateral external ears normal, oropharynx moist, no oral exudates, nose normal. [] Eyes: PERRLA, EOMI, conjunctiva normal, no discharge. [] Neck: Normal range of motion, no tenderness, supple, no stridor. [] Cardiovascular: Tachycardia, no murmur [] Lungs & Thorax: Bilateral breath sounds clear to auscultation, right side central line in place[] Abdomen: Bowel sounds normal, soft, no tenderness, no masses, no pulsatile masses. [] Skin: Warm, dry, no erythema, no rash. [] Back: No tenderness, no CVA tenderness. [] Extremities: No tenderness, no cyanosis, no clubbing, ROM intact, no edema. [] Neurologic: Alert and oriented X 3, normal motor function, normal sensory function, no focal deficits noted. [] Psychologic: Affect anxious, judgement normal, mood normal. [] Current Patient Data Vital Signs Vital Signs Date Time Temp Pulse Resp B/P (MAP) Pulse Ox O2 Delivery O2 Flow Rate FiO2 06/30/18 16:10 98.4 125 18 99 Room Air EKG EKG [] Radiology/Procedures Radiology/Procedures [] Course & Med Decision Making Course & Med Decision Making Evaluation of patient in ER showed 42-year-old female patient brought in by EMS because of heroine overdosed and unresponsiveness that resolved with Narcan intranasally given by EMS. Patient was alert and oriented and ambulated without any problem in ER and didn't want any treatment. Patient denies suicidal and homicidal ideation. Patient refused to see her and her son that we are waiting for her in the waiting area of emergency room. Patient was escorted to the family member by emergency room corporate security officer. Dragon Disclaimer Dragon Disclaimer This electronic medical record was generated, in whole or in part, using a voice recognition dictation system. Departure Departure: Impression: Primary Impression: Accidental overdose of heroin Additional Impressions: Tobacco abuse Tobacco abuse counseling Noncompliance by refusing service Disposition: 01 HOME, SELF-CARE (at 1622) Condition: IMPROVED Referrals: JOSE BURNS MD (PCP) Patient Instructions: Narcotic Overdose, Smoking Cessation, Tips For Success Additional Instructions: Drink plenty of liquids Follow-up with your primary care physician in 2-3 days Return to ER if not getting better Problem Qualifiers Primary Impression: Accidental overdose of heroin Encounter type: initial encounter Qualified Codes: T40.1X1A - Poisoning by heroin, accidental (unintentional), initial encounter JOSLYN JACOBSON MD Jun 30, 2018 16:24
== END 2018-06-30 16:34 | disposition home or self-care (01) ==
LOC: ER 15:54
DX: T40.1X1A Poisoning by heroin, accidental (unintentional), initial encounter (principal); I25.10 Atherosclerotic heart disease of native coronary artery without angina pectoris; F11.10 Opioid abuse, uncomplicated; I50.9 Heart failure, unspecified; F17.210 Nicotine dependence, cigarettes, uncomplicated; Z71.6 Tobacco abuse counseling; Z91.19 Patient's noncompliance with other medical treatment and regimen; Y92.091 Bathroom in other non-institutional residence as the place of occurrence of the external cause
CPT/HCPCS: 99283

== ENCOUNTER 2018-08-28 12:17 | Emergency (ER) | payer BC ==
[~2018-08-28] VITALS: Ht 160 cm; Wt 63.0 kg
[2018-08-28 12:50] LABS: BASO # 0.1 x10^3/uL (0.0-0.2); BASO % 1 % (0-3); EOS # 0.6 x10^3/uL (0.0-0.7); EOS % 6 % (0-3); HEMATOCRIT 39.7 % (36.0-47.0); HEMOGLOBIN 13.2 g/dL (12.0-15.5); LYMPH # 3.8 x10^3/uL (1.0-4.8); LYMPH % 36 % (24-48); MEAN CORPUSCULAR HEMOGLOBIN 32 pg (25-35); MEAN CORPUSCULAR HGB CONC 33 g/dL (31-37); MEAN CORPUSCULAR VOLUME 95 fL (79-100); MONO # 0.5 x10^3/uL (0.0-1.1); MONO % 5 % (0-9); NEUT # 5.6 x10^3uL (1.8-7.7); NEUT % 53 % (31-73); PLATELET COUNT 223 x10^3/uL (140-400); RED BLOOD COUNT 4.17 x10^6/uL (3.50-5.40); RED CELL DISTRIBUTION WIDTH 14.4 % (11.5-14.5); WHITE BLOOD COUNT 10.6 x10^3/uL (4.0-11.0)
--- NOTE | 2018-08-28 12:53 | PHYS DOC ---
Past History Past Medical History: Anxiety, CAD, CHF, Other Past Surgical History: Appendectomy, , Tonsillectomy, Other Additional Past Surgical Histo: valve replacement Alcohol Use: None Drug Use: None Adult General Chief Complaint Chief Complaint: CHEST PAIN HPI HPI Patient is a 43-year-old female presents complaining of chest discomfort. Patient is approximately one month post valve replacement from a vegetation on her tricuspid valve. She completed the initial course of pain medicine from her surgeon's, had an additional prescription from her primary care physician of narcotic pain medicine which ran out 5 days ago. She has been having some nausea and vomiting along with diarrheal issues. Denies any blood in the stool or emesis. Denies any new trauma. Denies any fever. Denies any drainage from the incision site. Denies any respirophasic chest pain. Pain is moderate to severe in intensity[] Review of Systems Review of Systems Constitutional: Denies fever or chills [] Eyes: Denies change in visual acuity, redness, or eye pain [] HENT: Denies nasal congestion or sore throat [] Respiratory: Denies cough or shortness of breath [] Cardiovascular: No additional information not addressed in HPI [] GI: Denies abdominal pain, nausea, vomiting, bloody stools or diarrhea [] : Denies dysuria or hematuria [] Musculoskeletal: Denies back pain or joint pain [] Integument: Denies rash or skin lesions [] Neurologic: Denies headache, focal weakness or sensory changes [] Endocrine: Denies polyuria or polydipsia [] All other systems were reviewed and found to be within normal limits, except as documented in this note. Current Medications Current Medications Current Medications Medications (Trade) Dose Ordered Sig/Latrell Start Time Stop Time Status Last Admin Dose Admin Ketorolac Tromethamine (Toradol 15mg Vial) 15 mg 1X ONCE 08/28/18 13:00 08/28/18 13:01 Morphine Sulfate (Morphine 4mg Syringe) 2 mg 1X ONCE 08/28/18 13:00 08/28/18 13:01 Allergies Allergies Allergies Coded Allergies Type Severity Reaction Last Updated Verified No Known Drug Allergies 05/25/18 No Physical Exam Physical Exam Constitutional: Well developed, well nourished, no acute distress, non-toxic appearance. [] HENT: Normocephalic, atraumatic, bilateral external ears normal, oropharynx moist, no oral exudates, nose normal. [] Eyes: PERRLA, EOMI, conjunctiva normal, no discharge. [] Neck: Normal range of motion, no tenderness, supple, no stridor. [] Cardiovascular:Heart rate regular rhythm, no murmur [] Lungs & Thorax: Bilateral breath sounds clear to auscultation [] Abdomen: Bowel sounds normal, soft, no tenderness, no masses, no pulsatile masses. [] Skin: Warm, dry, no erythema, no rash. [] Back: No tenderness, no CVA tenderness. [] Extremities: No tenderness, no cyanosis, no clubbing, ROM intact, no edema. [] Neurologic: Alert and oriented X 3, normal motor function, normal sensory function, no focal deficits noted. [] Psychologic: Affect normal, judgement normal, mood normal. [] Current Patient Data Vital Signs Vital Signs Date Time Temp Pulse Resp B/P (MAP) Pulse Ox O2 Delivery O2 Flow Rate FiO2 08/28/18 12:20 98.0 105 24 99 Room Air EKG EKG EKG shows a sinus rhythm at 99 bpm, normal axis, normal QTC, no ST elevations, compared with EKG of 05/25/2018, no acute changes are present. Interpreted by me at 1227[] Radiology/Procedures Radiology/Procedures PROCEDURE: CT ANGIOGRAPHY CHEST CTA OF THE CHEST WITH AND WITHOUT CONTRAST Clinical indications: Chest pain. Elevated d-dimer. Recent valve surgery. Technique: Noncontrast axial localizer was performed. After IV infusion of [ ] cc of Isovue-370, helical CT scanning of the chest was performed using the CT pulmonary embolism protocol. A coronal MIP reconstruction was generated. PQRS compliance Statement One or more of the following individualized dose reduction techniques were utilized for this study: 1. Automated exposure control 2. Adjustment of the mA and/or kV according to patient size 3. Use of iterative reconstruction technique Comparison: October 29, 2016. Findings: No pulmonary embolism is evident. No focal aneurysmal dilatation or dissection of thoracic aorta is seen. Cardiomegaly is evident. However, the right side of the heart is smaller in size in comparison to the previous study. This is secondary to interval tricuspid valve surgery. No pericardial effusion is seen. No enlarging thoracic lymphadenopathy is evident. No pleural effusion or pneumothorax is seen. Chronic scarring is seen bilaterally. Infiltrates seen previously on both sides have significantly improved. Some of the lung nodules seen previously have resolved. Other small lung nodules are stable. No new lung infiltrate or new lung nodule is seen.The proximal bronchial tree is patent. No lytic process is evident. Patient has had a sternotomy in the interim. No diastases of the sternotomy is evident. IMPRESSION: No pulmonary embolism. Decrease in size of the right side of the heart secondary to tricuspid valve surgery performed in the interim. No pericardial effusion is seen. Bilateral scarring. No new lung infiltrate. PROCEDURE: PORTABLE CHEST 1V PORTABLE CHEST 1V Clinical indications: Chest pain. Tricuspid valve repair in July 2018. COMPARISON: May 25, 2018. Findings: No acute lung infiltrate or pleural effusion or pulmonary edema or lung mass or pneumothorax is seen. The heart size is mildly enlarged but stable. A sternotomy has been performed in the interim. Otherwise the mediastinum is stable. The pulmonary vasculature and both desi are unremarkable. Impression: No acute radiographic abnormality is seen. [] Course & Med Decision Making Course & Med Decision Making Pertinent Labs and Imaging studies reviewed. (See chart for details) ED course: Patient arrived, was placed in bed, and tolerated exam well. After the return of the elevated d-dimer given her recent surgery, she was transported to and from [place] with any complications. She did receive good pain control with medications administered. After the return of the laboratory and imaging studies, these were discussed with the patient who voiced understanding. All questions were answered. She was discharged in improved condition. Medical decision making: This does not appear to be an acute coronary syndrome. No evidence of pneumonia, pneumothorax, pulmonary embolism, thoracic aneurysm dissection, nor esophageal rupture. We'll provide short-term pain management for her to follow-up with her primary care team for further long-term narcotic prescription.[] Dragon Disclaimer Dragon Disclaimer This electronic medical record was generated, in whole or in part, using a voice recognition dictation system. Departure Departure: Impression: Primary Impression: Chest pain Disposition: HOME, SELF-CARE Condition: IMPROVED Referrals: JOSE BURNS MD (PCP) Follow-up in 2 days Patient Instructions: Pain Relief Preoperatively and Postoperatively Additional Instructions: Follow-up with your regular doctor for long-term pain management. Return to the ER if worsening difficulty breathing, fever of more than 101, or any other concerns. Scripts Tramadol Hcl (TRAMADOL HCL) 50 Mg Tablet 50 MG PO PRN Q6HRS PRN for PAIN, #20 TAB Prov: NAKUL HERNÁNDEZ DO 08/28/18 Meloxicam (MELOXICAM) 7.5 Mg Tablet 7.5 MG PO DAILY for PAIN, #20 TAB Prov: NAKUL HERNÁNDEZ DO 08/28/18 Problem Qualifiers Primary Impression: Chest pain Chest pain type: other chest pain Qualified Codes: R07.89 - Other chest pain NAKUL HERNÁNDEZ DO August 28, 2018 12:53
[2018-08-28] MEDS ORDERED: IV NORMAL SALINE 1,000ML 1,000 ML IV ONE (13:00)
[2018-08-28] MEDS ORDERED: MORPHINE SULFATE 4 MG/ML DISP.SYRIN. IV ONE (13:00)
[2018-08-28] MEDS ORDERED: KETOROLAC 15 MG/ML VIAL. IV ONE (13:00)
--- NOTE | 2018-08-28 13:03 | RAD ---
PORTABLE CHEST 1V Clinical indications: Chest pain. Tricuspid valve repair in July 2018. COMPARISON: May 25, 2018. Findings: No acute lung infiltrate or pleural effusion or pulmonary edema or lung mass or pneumothorax is seen. The heart size is mildly enlarged but stable. A sternotomy has been performed in the interim. Otherwise the mediastinum is stable. The pulmonary vasculature and both desi are unremarkable. Impression: No acute radiographic abnormality is seen. Electronically signed by: César Sanz MD (08/28/2018 1:00 PM) [facility]
[2018-08-28 13:09] LABS: ALBUMIN 3.9 g/dL (3.4-5.0); ALBUMIN/GLOBULIN RATIO 1.3 (1.0-1.7); CALCIUM 9.2 mg/dL (8.5-10.1); GFR 60.2; MAGNESIUM 1.8 mg/dL (1.8-2.4); POTASSIUM 4.2 mmol/L (3.5-5.1); TOTAL BILIRUBIN 0.2 mg/dL (0.2-1.0); TOTAL PROTEIN 6.8 g/dL (6.4-8.2)
[2018-08-28 13:17] LABS: AMPHETAMINE/METHAMPHETAMINE NEG (NEG); BARBITURATES NEG (NEG); BENZODIAZEPINES POS (NEG); CANNABINOIDS NEG (NEG); COCAINE NEG (NEG); METHADONE NEG (NEG); OPIATES NEG (NEG); PHENCYCLIDINE NEG (NEG)
[2018-08-28] MEDS ORDERED: IOHEXOL 350 MG/ML 100 ML VIAL. IV ONE (13:30)
--- NOTE | 2018-08-28 14:30 | RAD ---
CTA OF THE CHEST WITH AND WITHOUT CONTRAST Clinical indications: Chest pain. Elevated d-dimer. Recent valve surgery. Technique: Noncontrast axial localizer was performed. After IV infusion of [ ] cc of Isovue-370, helical CT scanning of the chest was performed using the CT pulmonary embolism protocol. A coronal MIP reconstruction was generated. PQRS compliance Statement One or more of the following individualized dose reduction techniques were utilized for this study: 1. Automated exposure control 2. Adjustment of the mA and/or kV according to patient size 3. Use of iterative reconstruction technique Comparison: October 29, 2016. Findings: No pulmonary embolism is evident. No focal aneurysmal dilatation or dissection of thoracic aorta is seen. Cardiomegaly is evident. However, the right side of the heart is smaller in size in comparison to the previous study. This is secondary to interval tricuspid valve surgery. No pericardial effusion is seen. No enlarging thoracic lymphadenopathy is evident. No pleural effusion or pneumothorax is seen. Chronic scarring is seen bilaterally. Infiltrates seen previously on both sides have significantly improved. Some of the lung nodules seen previously have resolved. Other small lung nodules are stable. No new lung infiltrate or new lung nodule is seen.The proximal bronchial tree is patent. No lytic process is evident. Patient has had a sternotomy in the interim. No diastases of the sternotomy is evident. IMPRESSION: No pulmonary embolism. Decrease in size of the right side of the heart secondary to tricuspid valve surgery performed in the interim. No pericardial effusion is seen. Bilateral scarring. No new lung infiltrate. Electronically signed by: César Sanz MD (08/28/2018 2:27 PM) [facility]
[2018-08-28 14:35] VITALS: BP 112/84
[2018-08-28] MEDS ORDERED: TRAM50TA PO (14:39)
[2018-08-28] MEDS ORDERED: MELO7.5T29 PO (14:39)
--- NOTE | 2018-08-30 06:26 | EKG ---
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
== END 2018-08-28 14:40 | disposition home or self-care (01) ==
LOC: ER 12:17
DX: R07.89 Other chest pain (principal); R11.2 Nausea with vomiting, unspecified; R19.7 Diarrhea, unspecified; F41.9 Anxiety disorder, unspecified; I25.10 Atherosclerotic heart disease of native coronary artery without angina pectoris; I50.9 Heart failure, unspecified
CPT/HCPCS: 36415; 71045; 71275; 80053; 80307; 81025; 83735; 83880; 84484; 85025; 85379; 85610; 85730; 93005; 96361; 96374; 96375; 99285; J1885; J2270; J7030

== ENCOUNTER 2018-09-03 10:45 | Emergency (ER) | payer BC ==
[~2018-09-03] VITALS: Ht 160 cm; Wt 61.2 kg
[~2018-09-03 10:45] MED LIST changes: +MELO7.5T29 PO
[2018-09-03] MEDS ORDERED: IV NORMAL SALINE 1,000ML 1,000 ML IV ONE ×2 (11:00→13:00)
[2018-09-03 11:09] LABS: BASO # 0.1 x10^3/uL (0.0-0.2); BASO % 1 % (0-3); EOS # 0.3 x10^3/uL (0.0-0.7); EOS % 2 % (0-3); HEMATOCRIT 45.2 % (36.0-47.0); HEMOGLOBIN 15.3 g/dL (12.0-15.5); LYMPH # 2.3 x10^3/uL (1.0-4.8); LYMPH % 14 % (24-48); MEAN CORPUSCULAR HEMOGLOBIN 32 pg (25-35); MEAN CORPUSCULAR HGB CONC 34 g/dL (31-37); MEAN CORPUSCULAR VOLUME 94 fL (79-100); MONO # 1.5 x10^3/uL (0.0-1.1); MONO % 9 % (0-9); NEUT # 12.4 x10^3uL (1.8-7.7); NEUT % 75 % (31-73); PLATELET COUNT 265 x10^3/uL (140-400); RED BLOOD COUNT 4.83 x10^6/uL (3.50-5.40); RED CELL DISTRIBUTION WIDTH 14.3 % (11.5-14.5); WHITE BLOOD COUNT 16.6 x10^3/uL (4.0-11.0)
--- NOTE | 2018-09-03 11:10 | PHYS DOC ---
Past History Past Medical History: Other Past Surgical History: Cholecystectomy, , Tonsillectomy, Other Additional Past Surgical Histo: valve replacement Alcohol Use: None Drug Use: None Social History Narrative: FORMER IV DRUG USER Adult General Chief Complaint Chief Complaint: SHORTNESS OF BREATH [facility] HPI 43-year-old female presents with shortness of breath and chest pain. 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 The patient was seen in this facility on Thursday with chest pain but was discharged home. Last night, she had upper chest pain which she has not really had before. She states that it is just under her collarbones. It is an intense cramping sensation. She also feels short of breath. She denies diaphoresis. The patient has not been doing any heavy exertion. She can't think of anything that would've brought on the symptoms. She denies fever or chills. She was recently diagnosed with a fingernail infection placed on Keflex. That is the only recent change her medicines. Review of Systems Review of Systems Constitutional: Denies fever or chills [] Eyes: Denies change in visual acuity, redness, or eye pain [] HENT: Denies nasal congestion or sore throat [] Respiratory: shortness of breath [] Cardiovascular: No additional information not addressed in HPI [] GI: Nausea. Denies abdominal pain, vomiting, bloody stools or diarrhea [] : Denies dysuria or hematuria [] Musculoskeletal: Denies back pain or joint pain [] Integument: Denies rash or skin lesions [] Neurologic: Denies headache, focal weakness or sensory changes [] Endocrine: Denies polyuria or polydipsia [] All other systems were reviewed and found to be within normal limits, except as documented in this note. Current Medications Current Medications Current Medications Medications (Trade) Dose Ordered Sig/Latrell Start Time Stop Time Status Last Admin Dose Admin Ondansetron HCl (Zofran) 4 mg 1X ONCE 09/03/18 11:15 09/03/18 11:16 UNV Sodium Chloride 1,000 ml @ 1,000 mls/hr 1X ONCE 09/03/18 11:00 09/03/18 11:59 Allergies Allergies Allergies Coded Allergies Type Severity Reaction Last Updated Verified No Known Drug Allergies 09/03/18 No Physical Exam Physical Exam Constitutional: Well developed, well nourished, mild acute distress, non-toxic appearance. [] HENT: Normocephalic, atraumatic, bilateral external ears normal, oropharynx moist, no oral exudates, nose normal. [] Eyes: PERRLA, EOMI, conjunctiva normal, no discharge. [] Neck: Normal range of motion, no tenderness, supple, no stridor. [] Cardiovascular:Heart rate 123, regular rhythm, no obvious murmur [] Lungs & Thorax: Bilateral breath sounds clear to auscultation [] Abdomen: Bowel sounds normal, soft, no tenderness, no masses, no pulsatile masses. [] Skin: Warm, dry, no erythema, no rash. Chest scar appears to be healing well, no sign of infection[] Back: No tenderness, no CVA tenderness. [] Extremities: No tenderness, no cyanosis, no clubbing, ROM intact, no edema. [] Neurologic: Alert and oriented X 3, normal motor function, normal sensory function, no focal deficits noted. [] Psychologic: Affect normal, judgement normal, mood normal. [] Current Patient Data Vital Signs Vital Signs Date Time Temp Pulse Resp B/P (MAP) Pulse Ox O2 Delivery O2 Flow Rate FiO2 09/03/18 10:55 97.9 125 24 96 Room Air EKG EKG [] Radiology/Procedures Radiology/Procedures [] Impressions: CTA OF THE CHEST WITH AND WITHOUT CONTRAST Clinical indications: Recent tricuspid surgery. Chest pain. Tachycardia. Technique: Noncontrast axial localizer was performed. After IV infusion of 75 cc of Omnipaque 300, helical CT scanning of the chest was performed using the CT pulmonary embolism protocol. A coronal MIP reconstruction was generated. PQRS compliance Statement One or more of the following individualized dose reduction techniques were utilized for this study: 1. Automated exposure control 2. Adjustment of the mA and/or kV according to patient size 3. Use of iterative reconstruction technique Comparison: August 28, 2018. October 29, 2016. Findings: No pulmonary embolism is evident. No thoracic aortic dissection or focal aneurysmal dilatation is seen. Cardiomegaly is seen. There is a small amount of pericardial effusion now present.No enlarging thoracic lymphadenopathy is evident. No pleural effusion is seen. Again seen is an infiltrate present within the left lower lobe with associated bronchiectasis which is unchanged. This is consistent with scarring. Small area of scarring of the anterior aspect left upper lobe is unchanged. There is mild linear scarring of the posterior right lower lobe with is unchanged. Small subpleural lung nodule is seen within the posterior aspect right upper lobe which is stable. No new lung consolidation is evident. The proximal bronchial tree is patent. The adrenal glands are not seen in this study. No lytic process is evident. Sternotomy is evident. No dehiscence of the sternotomy is evident. No compression fracture of the thoracic spine is evident. No acute appearing rib fracture is seen. IMPRESSION: No pulmonary embolism. Bilateral chronic lung infiltrates. No new lung infiltrate. New small pericardial effusion since September 01, 2018. Electronically signed by: Teodora Sanz MD (09/03/2018 12:30 PM) [id number] DICTATED AND SIGNED BY: TEODORA SANZ MD DATE: 09/03/18 1230 CC: BAILEY NANCE DO; JOSE BURNS MD ~ CHEST AP ONLY History: Chest pain Comparison: August 28, 2018 Findings: Single view of the chest is submitted. There again has been a median sternotomy. Pericardial cardiac silhouette is somewhat prominent although stable. There is no pneumothorax. Left lateral lung base airspace opacity is difficult to exclude on this exam due to pericardial cardiac silhouette. There is no right lung infiltrate or pleural fluid. Impression: 1. Left lateral lung base airspace opacity is difficult to exclude given the enlarged pericardial cardiac silhouette, otherwise no acute radiographic abnormality. Electronically signed by: Sid Us MD (09/03/2018 11:27 AM) [facility] DICTATED AND SIGNED BY: SID US MD DATE: 09/03/18 1127 CC: BAILEY NANCE DO; JOSE BURNS MD ~ Course & Med Decision Making Course & Med Decision Making Pertinent Labs and Imaging studies reviewed. (See chart for details) The patient's labs are significant for white count of 16. She had a heart rate greater than 100 on arrival and was hypotensive. There is a suspected source with a finger infection so the patient meets sepsis criteria. Saline bolus was ordered. Her chest x-ray does not definitively show infiltrate, but does not rule it out. She has cardiomegaly. I ordered a CT angio of the chest. The CT angiogram shows a small cardiac effusion, but no other new findings. I have ordered a lactic acid and blood cultures. The patient's heart rate has improved after the first liter of fluids, but her blood pressure was still 91/51. We will give her a second liter. She has no fever. A total of 2 L normal saline was given to the patient. Sepsis fluid reassessment: Patient's blood pressure has slightly improved, but her heart rate is much improved. She appears to be improving with fluids. I ordered 3.75 g of Zosyn for the patient. I discussed the patient with the cardiothoracic department and we agreed the patient should be transferred to for further evaluation and monitoring. Dr. Crystal is the accepting physician. They've additionally requested we give 1 g of vancomycin. We are still waiting for a bed assignment for the patient prior to transfer. 57 minutes of critical care time was spent on this patient exclusive of other billable procedures. [] Dragon Disclaimer Dragon Disclaimer This electronic medical record was generated, in whole or in part, using a voice recognition dictation system. Departure Departure: Impression: Primary Impression: Sepsis Additional Impressions: Skin infection Pericardial effusion [facility] Condition: GUARDED Referrals: JOSE BURNS MD (PCP) Problem Qualifiers Primary Impression: Sepsis Sepsis type: sepsis due to unspecified organism Qualified Codes: A41.9 - Sepsis, unspecified organism BAILEY NANCE DO September 03, 2018 11:10
[2018-09-03] MEDS ORDERED: ONDANSETRON PF 4 MG/2 ML VIAL. IV ONE (11:15)
[2018-09-03 11:29] LABS: ALBUMIN 4.1 g/dL (3.4-5.0); ALBUMIN/GLOBULIN RATIO 1.1 (1.0-1.7); CREATININE 0.9 mg/dL (0.6-1.0); POTASSIUM 4.5 mmol/L (3.5-5.1); TOTAL BILIRUBIN 0.6 mg/dL (0.2-1.0); TOTAL PROTEIN 7.7 g/dL (6.4-8.2)
--- NOTE | 2018-09-03 11:30 | RAD ---
CHEST AP ONLY History: Chest pain Comparison: August 28, 2018 Findings: Single view of the chest is submitted. There again has been a median sternotomy. Pericardial cardiac silhouette is somewhat prominent although stable. There is no pneumothorax. Left lateral lung base airspace opacity is difficult to exclude on this exam due to pericardial cardiac silhouette. There is no right lung infiltrate or pleural fluid. Impression: 1. Left lateral lung base airspace opacity is difficult to exclude given the enlarged pericardial cardiac silhouette, otherwise no acute radiographic abnormality. Electronically signed by: Romario Ledesma MD (09/03/2018 11:27 AM) [id number]
--- NOTE | 2018-09-03 11:43 | EKG ---
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
[2018-09-03 11:57] LABS: BACTERIA,URINE MANY /HPF (0-FEW); BILIRUBIN,URINE NEG (NEG); CLARITY,URINE TURBID; COLOR,URINE YELLOW; GLUCOSE,URINE NEG (NEG); NITRITE,URINE NEG (NEG); RBC,URINE 0 /HPF (0-2); SQUAMOUS EPITHELIAL CELL,UR MANY /LPF; UROBILINOGEN,URINE 0.2 mg/dL (0.2 mg/dL); WBC,URINE OCC /HPF (0-4)
[2018-09-03] MEDS ORDERED: IOHEXOL 300 MG/ML 75 ML VIAL. IV ONE (12:00)
[2018-09-03 12:32] LABS: % ATYL 2 % (0-0); % BANDS 1 % (0-9); % BASOS 1 % (0-3); % EOS 2 % (0-5); % LYMPHS 13 % (24-48); % METAS 1 % (0-0); % MONOS 6 % (0-10); % SEGS 74 % (35-66); PLT ESTIMATE ADEQUATE (ADEQUATE)
[2018-09-03 12:33] LABS: ANISOCYTOSIS SLIGHT; STOMATOCYTES OCC; TOXIC GRANULATION PRESENT
--- NOTE | 2018-09-03 12:33 | RAD ---
CTA OF THE CHEST WITH AND WITHOUT CONTRAST Clinical indications: Recent tricuspid surgery. Chest pain. Tachycardia. Technique: Noncontrast axial localizer was performed. After IV infusion of 75 cc of Omnipaque 300, helical CT scanning of the chest was performed using the CT pulmonary embolism protocol. A coronal MIP reconstruction was generated. PQRS compliance Statement One or more of the following individualized dose reduction techniques were utilized for this study: 1. Automated exposure control 2. Adjustment of the mA and/or kV according to patient size 3. Use of iterative reconstruction technique Comparison: August 28, 2018. October 29, 2016. Findings: No pulmonary embolism is evident. No thoracic aortic dissection or focal aneurysmal dilatation is seen. Cardiomegaly is seen. There is a small amount of pericardial effusion now present.No enlarging thoracic lymphadenopathy is evident. No pleural effusion is seen. Again seen is an infiltrate present within the left lower lobe with associated bronchiectasis which is unchanged. This is consistent with scarring. Small area of scarring of the anterior aspect left upper lobe is unchanged. There is mild linear scarring of the posterior right lower lobe with is unchanged. Small subpleural lung nodule is seen within the posterior aspect right upper lobe which is stable. No new lung consolidation is evident. The proximal bronchial tree is patent. The adrenal glands are not seen in this study. No lytic process is evident. Sternotomy is evident. No dehiscence of the sternotomy is evident. No compression fracture of the thoracic spine is evident. No acute appearing rib fracture is seen. IMPRESSION: No pulmonary embolism. Bilateral chronic lung infiltrates. No new lung infiltrate. New small pericardial effusion since September 01, 2018. Electronically signed by: César Sanz MD (09/03/2018 12:30 PM) [id number]
[2018-09-03] MEDS ORDERED: PIPERACILLIN/TAZOBACTAM 3.375 GM VIAL IV ONE ×2 (13:38→13:48)
[2018-09-03] MEDS ORDERED: IV NORMAL SALINE 50ML 50 ML ONE (13:38)
[2018-09-03] MEDS ORDERED: PROCHLORPERAZINE 10 MG/2 ML VIAL. IV ONE (13:45)
[2018-09-03] MEDS ORDERED: PIPERACILLIN/TAZOBACTAM 3.375 GM in IV NORMAL SALINE 50ML 50 ML IV ONE (13:45)
[2018-09-03] MEDS ORDERED: VANCOMYCIN 1 GM in IV NORMAL SALINE 250ML 250 ML IV ONE (14:45)
[2018-09-03] MEDS ORDERED: VANCOMYCIN 1.5 GM in IV NORMAL SALINE 500ML 500 ML IV ONE (15:00)
[2018-09-03 15:50] VITALS: BP 88/56
== END 2018-09-03 16:28 | disposition short-term general hospital (02) ==
LOC: ER 10:45
DX: A41.9 Sepsis, unspecified organism (principal); I31.3 Pericardial effusion (noninflammatory); L08.89 Other specified local infections of the skin and subcutaneous tissue
CPT/HCPCS: 36415; 71045; 71275; 80053; 81001; 83605; 83880; 84484; 85007; 85025; 87040; 87086; 93005; 96365; 96366; 96367; 96375; 99291; J0780; J2405; J2543; J3370; J7040; Q9967; J7030

== ENCOUNTER 2020-06-12 12:33 | Emergency (ER) | payer BC ==
[~2020-06-12] VITALS: Ht 160 cm; Wt 61.2 kg
[~2020-06-12 12:33] MED LIST changes: -VALA1000 PO; +VALA10008 PO
--- NOTE | 2020-06-12 13:45 | PHYS DOC ---
Past History Past Medical History: Other Past Surgical History: Appendectomy, , Tonsillectomy, Other Additional Past Surgical Histo: valve replacement Alcohol Use: None Drug Use: None General Adult EDM: Chief Complaint: ABDOMINAL PAIN HPI: HPI: Patient is a 44-year-old female coming for 4 days of vomiting. Patient states she has been able to tolerate anything p.o. her last vomit was also 4 days ago. Has had decreased urine is sometimes incontinence when she is vomiting. Emesis is nonbloody nonbilious. Patient has a history of multiple abdominal surgeries, states she feels like she has epigastric tightness. Recent contact who was diagnosed with COVID-19 but she denies any loss of smell or taste, fevers, cough, shortness of breath or diarrhea. Patient states she has decreased smoking to about 5 to 6 cigarettes a day. Denies any alcohol or drug use including marijuana. Patient's history significant for IV drug use in the past, states she has not used it for 4 years. Review of Systems: Review of Systems: All other systems within normal limits except for as noted in the HPI Allergies: Allergies: Allergies Coded Allergies Type Severity Reaction Last Updated Verified No Known Drug Allergies 09/03/18 No Physical Exam: PE: Constitutional: Well developed, well nourished, no acute distress, non-toxic appearance. [] HENT: Normocephalic, atraumatic, bilateral external ears normal, nose normal. [] Eyes: PERRLA, conjunctiva normal, no discharge. [] Neck: No rigidity, supple, no stridor. [] Cardiovascular: Regular rate and rhythm, brisk cap refill [] Lungs & Thorax: Non labored symmetric respirations, no tachypnea or respiratory distress [] Abdomen: Soft, nondistended, tenderness and guarding specially epigastric area multiple scars. No palpable hernia. Skin: Warm, dry, no erythema, no rash. [] Back: Unremarkable Extremities: No deformities, range of motion grossly intact, no lower extremity edema [] Neurologic: Alert and oriented X 3, no focal deficits noted. [] Psychologic: Affect normal, judgement normal, mood normal. [] Current Patient Data: Vital Signs: Vital Signs Date Time Temp Pulse Resp B/P (MAP) Pulse Ox O2 Delivery O2 Flow Rate FiO2 06/12/20 13:06 98.0 120 16 111/76 (88) 96 Room Air EKG: EKG: Normal sinus rhythm with left axis deviation, no ST depression or elevation no ectopy, irregularly shaped P waves. T wave inversions in lateral leads [] Radiology/Procedures: Radiology/Procedures: EXAM: Abdomen and pelvis CT with intravenous contrast. HISTORY: Pain and vomiting. TECHNIQUE: Computed tomographic images of the abdomen and pelvis were obtained f ollowing the administration of intravenous contrast. Multiplanar reformatting was performed. *One or more of the following individualized dose reduction techniques were utilized for this examination: 1. Automated exposure control. 2. Adjustment of the mA and/or kV according to patient size. 3. Use of iterative reconstruction technique. COMPARISON: 01/21/2017. FINDINGS: Evaluation of the lower thorax demonstrates stable left lower lobe and lingular pleural parenchymal scarring. There is no infiltrate or pleural effusion. There has been interval decrease in previously demonstrated hepatomegaly and hepatic steatosis. There is suspected stable geographic fatty infiltration within the anterior superior right hepatic lobe. There is hepatic surface nodularity likely due to cirrhosis. The gallbladder, pancreas, spleen and adrenal glands are unremarkable. There is thickening of the wall of the distal gastric antrum. There is no hydronephrosis or suspicious renal lesion. The appendix is absent. There is no evidence of bowel obstruction. The uterus is unremarkable. There are fluid density structures within the bilateral adnexal regions which are likely associated with small bowel loops rather than adnexal cysts. There are nonspecific mesenteric and retroperitoneal lymph nodes. The aorta is normal in caliber. The bladder is nearly empty. There is no suspicious osseous lesion. There are several benign bone islands. There is degenerative change of the lumbosacral junction. IMPRESSION: 1. Decrease in previously demonstrated hepatic steatosis and hepatomegaly. There are suspected residual geographic fatty infiltration of the right hepatic lobe and there is hepatic surface nodularity suggesting underlying cirrhosis. Correlate with liver enzyme laboratory values. 2. Thickening of the wall of the gastric antrum. Correlate for possible gastritis. Endoscopy may be indicated if this concern for underlying neoplasm 3. Fluid-filled structures within the bilateral adnexal regions which are likely due to adjacent loops of small bowel rather than adnexal cysts.[] Heart Score: C/O Chest Pain: No Risk Factors: Risk Factors: DM, Current or recent (<one month) smoker, HTN, HLP, family history of CAD, obesity. Risk Scores: Score 0 - 3: 2.5% MACE over next 6 weeks - Discharge Home Score 4 - 6: 20.3% MACE over next 6 weeks - Admit for Clinical Observation Score 7 - 10: 72.7% MACE over next 6 weeks - Early Invasive Strategies Course & Med Decision Making: Course & Med Decision Making Pertinent Labs and Imaging studies reviewed. (See chart for details) Vomiting controlled with Zofran. Work-up shows thickening of the gastric mucosa. Discussed with patient the could be scar tissue from her prior surgeries versus gastritis. Advised her to follow-up with her primary care provider for endoscopic to rule out neoplasm [] Dragon Disclaimer: Dragon Disclaimer: This electronic medical record was generated, in whole or in part, using a voice recognition dictation system. Departure Departure: Impression: Primary Impression: Abdominal pain Additional Impressions: Nausea & vomiting UTI (urinary tract infection) Disposition: 01 DC HOME SELF CARE/HOMELESS Condition: STABLE Referrals: JOSE LOMBARDO MD (PCP) Patient Instructions: Nausea and Vomiting Scripts Cephalexin (CEPHALEXIN) 500 Mg Capsule 1 CAP PO BID for antibiotic for 7 Days, #14 CAP Prov: TK GERMAIN MD 06/12/20 Omeprazole (OMEPRAZOLE) 20 Mg Capsule.dr 1 CAP PO DAILY for antacid, #30 CAP 5 Refills Prov: TK GERMAIN MD 06/12/20 Ondansetron (ONDANSETRON ODT) 4 Mg Tab.rapdis 1 TAB PO PRN Q6-8HRS PRN for NAUSEA, #16 TAB Prov: TK GERMAIN MD 06/12/20 TK GERMAIN MD Jun 12, 2020 13:45
[2020-06-12 13:46] LABS: BASO # 0.1 x10^3/uL (0.0-0.2); BASO % 1 % (0-3); EOS # 0.1 x10^3/uL (0.0-0.7); EOS % 1 % (0-3); HEMATOCRIT 52.3 % (36.0-47.0); HEMOGLOBIN 17.1 g/dL (12.0-15.5); LYMPH # 3.3 x10^3/uL (1.0-4.8); LYMPH % 24 % (24-48); MEAN CORPUSCULAR HEMOGLOBIN 34 pg (25-35); MEAN CORPUSCULAR HGB CONC 33 g/dL (31-37); MEAN CORPUSCULAR VOLUME 105 fL (79-100); MONO # 0.8 x10^3/uL (0.0-1.1); MONO % 6 % (0-9); NEUT # 9.6 x10^3uL (1.8-7.7); NEUT % 69 % (31-73); PLATELET COUNT 187 x10^3/uL (140-400); RED BLOOD COUNT 4.97 x10^6/uL (3.50-5.40); RED CELL DISTRIBUTION WIDTH 14.2 % (11.5-14.5)
[2020-06-12 13:48] LABS: CALCIUM 8.9 mg/dL (8.5-10.1); CREATININE 1.1 mg/dL (0.6-1.0); GFR 53.7; POTASSIUM 4.2 mmol/L (3.5-5.1)
[2020-06-12] MEDS ORDERED: ONDANSETRON PF 4 MG/2 ML VIAL. ONE (13:51)
[2020-06-12 13:55] LABS: ALBUMIN 4.1 g/dL (3.4-5.0); TOTAL BILIRUBIN 1.3 mg/dL (0.2-1.0); TOTAL PROTEIN 8.2 g/dL (6.4-8.2)
[2020-06-12] MEDS: ONDANSETRON PF 4 MG/2 ML VIAL. IVP ONE ×2 (14:00→17:00)
[2020-06-12] MEDS: IV NORMAL SALINE 1,000ML 1,000 ML IV ONE (14:00)
[2020-06-12] MEDS: IOHEXOL 300 MG/ML 75 ML VIAL. IV ONE (14:28)
--- NOTE | 2020-06-12 14:50 | RAD ---
EXAM: Abdomen and pelvis CT with intravenous contrast. HISTORY: Pain and vomiting. TECHNIQUE: Computed tomographic images of the abdomen and pelvis were obtained following the administ ration of intravenous contrast. Multiplanar reformatting was performed. *One or more of the following individualized dose reduction techniques were utilized for this examina tion: 1. Automated exposure control. 2. Adjustment of the mA and/or kV according to patient size. 3. Use of iterative reconstruction technique. COMPARISON: 01/21/2017. FINDINGS: Evaluation of the lower thorax demonstrates stable left lower lobe and lingular pleural par enchymal scarring. There is no infiltrate or pleural effusion. There has been interval decrease in pr eviously demonstrated hepatomegaly and hepatic steatosis. There is suspected stable geographic fatty infiltration within the anterior superior right hepatic lobe. There is hepatic surface nodularity lik vanda due to cirrhosis. The gallbladder, pancreas, spleen and adrenal glands are unremarkable. There is thickening of the wall of the distal gastric antrum. There is no hydronephrosis or suspicious renal lesion. The appendix is absent. There is no evidence o f bowel obstruction. The uterus is unremarkable. There are fluid density structures within the bilate ral adnexal regions which are likely associated with small bowel loops rather than adnexal cysts. The re are nonspecific mesenteric and retroperitoneal lymph nodes. The aorta is normal in caliber. The bl adder is nearly empty. There is no suspicious osseous lesion. There are several benign bone islands. There is degenerative change of the lumbosacral junction. IMPRESSION: 1. Decrease in previously demonstrated hepatic steatosis and hepatomegaly. There are suspected residu al geographic fatty infiltration of the right hepatic lobe and there is hepatic surface nodularity espitia ggesting underlying cirrhosis. Correlate with liver enzyme laboratory values. 2. Thickening of the wall of the gastric antrum. Correlate for possible gastritis. Endoscopy may be i ndicated if this concern for underlying neoplasm 3. Fluid-filled structures within the bilateral adnexal regions which are likely due to adjacent loop s of small bowel rather than adnexal cysts. Electronically signed by: Maci Farias MD (06/12/2020 2:48 PM) [id number]
[2020-06-12 15:11] LABS: CLARITY,URINE CLOUDY; COLOR,URINE AMBER; GLUCOSE,URINE NEG (NEG)
[2020-06-12 15:12] LABS: BACTERIA,URINE MANY /HPF (0-FEW); BILIRUBIN,URINE SMALL (NEG); NITRITE,URINE POS (NEG); RBC,URINE OCC /HPF (0-2); SQUAMOUS EPITHELIAL CELL,UR FEW /LPF; UROBILINOGEN,URINE >=8.0 mg/dL (0.2 mg/dL); WBC,URINE OCC /HPF (0-4)
--- NOTE | 2020-06-12 15:13 | EKG ---
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
[2020-06-12] MEDS ORDERED: cefTRIAXone SODIUM 1 GM VIAL ONE (15:38)
[2020-06-12] MEDS ORDERED: IV NORMAL SALINE 50ML 50 ML ONE (15:38)
[2020-06-12 15:43] VITALS: BP 108/65
[2020-06-12] MEDS: KETOROLAC 15 MG/ML VIAL. IVP ONE (15:45)
[2020-06-12] MEDS ORDERED: LIDO:MAALOX 1:1 20 ML SINGLE DOSE. ONE (16:22)
[2020-06-12] MEDS: LIDO:MAALOX 1:1 20 ML SINGLE DOSE. PO ONE (16:25)
[2020-06-12] MEDS: MORPHINE SULFATE 4 MG/ML DISP.SYRIN. IV ONE (17:00)
[2020-06-12] MEDS ORDERED: OMEP20CA16 PO (17:12)
[2020-06-12] MEDS ORDERED: CEPH500C PO (17:12)
[2020-06-12] MEDS ORDERED: ONDA4TAB12 PO (17:12)
== END 2020-06-12 17:18 | disposition home or self-care (01) ==
LOC: ER 12:33
DX: N39.0 Urinary tract infection, site not specified (principal); R11.2 Nausea with vomiting, unspecified; R10.13 Epigastric pain; F17.210 Nicotine dependence, cigarettes, uncomplicated; Z90.89 Acquired absence of other organs; Z98.890 Other specified postprocedural states
CPT/HCPCS: 36415; 74177; 80053; 81001; 83605; 83690; 85025; 87086; 93005; 96361; 96365; 96366; 96375; 96376; 99285; J0696; J1885; J2270; J2405; J7030; Q9967

== ENCOUNTER → 2021-06-28 | Outpatient (CLI) | payer BC ==
[~2021-06-28] MED LIST changes: +CEPH500C PO; +DICY20TA PO; -DICY20TA3 PO; -LISI2.5T PO; +LISI2.5T12 PO; +OMEP20CA16 PO; +ONDA4TAB12 PO
[2021-06-28 12:03] LABS: BASO # 0.1 x10^3/uL (0.0-0.2); BASO % 1 % (0-3); EOS # 0.5 x10^3/uL (0.0-0.7); EOS % 6 % (0-3); HEMATOCRIT 46.1 % (36.0-47.0); HEMOGLOBIN 15.4 g/dL (12.0-15.5); LYMPH % 24 % (24-48); MEAN CORPUSCULAR HEMOGLOBIN 32 pg (25-35); MEAN CORPUSCULAR HGB CONC 33 g/dL (31-37); MEAN CORPUSCULAR VOLUME 97 fL (79-100); MONO # 0.9 x10^3/uL (0.0-1.1); MONO % 10 % (0-9); NEUT % 59 % (31-73); PLATELET COUNT 177 x10^3/uL (140-400); RED BLOOD COUNT 4.74 x10^6/uL (3.50-5.40); RED CELL DISTRIBUTION WIDTH 17.5 % (11.5-14.5); WHITE BLOOD COUNT 8.5 x10^3/uL (4.0-11.0)
[2021-06-28 12:07] LABS: ALBUMIN 3.3 g/dL (3.4-5.0); ALBUMIN/GLOBULIN RATIO 0.9 (1.0-1.7); CALCIUM 8.9 mg/dL (8.5-10.1); CREATININE 0.7 mg/dL (0.6-1.0); DIRECT BILIRUBIN 11.8 mg/dL (0.0-0.2); GFR 90.1; POTASSIUM 4.2 mmol/L (3.5-5.1); TOTAL PROTEIN 6.9 g/dL (6.4-8.2)
== END ==
LOC: LAB 10:03
PROVIDERS: ATTEND Internal Medicine Cardiovascular Disease
DX: R76.8 Other specified abnormal immunological findings in serum (principal); I42.0 Dilated cardiomyopathy; R17 Unspecified jaundice; I50.810 Right heart failure, unspecified; R07.9 Chest pain, unspecified; Z95.4 Presence of other heart-valve replacement; I36.2 Nonrheumatic tricuspid (valve) stenosis with insufficiency
CPT/HCPCS: 36415; 80053; 82248; 85025

== ENCOUNTER → 2021-08-09 | Outpatient (CLI) | payer BC ==
[2021-08-09 13:50] LABS: BASO # 0.1 x10^3/uL (0.0-0.2); BASO % 1 % (0-3); EOS # 0.4 x10^3/uL (0.0-0.7); EOS % 3 % (0-3); HEMATOCRIT 48.6 % (36.0-47.0); HEMOGLOBIN 16.2 g/dL (12.0-15.5); LYMPH # 3.6 x10^3/uL (1.0-4.8); LYMPH % 31 % (24-48); MEAN CORPUSCULAR HEMOGLOBIN 34 pg (25-35); MEAN CORPUSCULAR HGB CONC 33 g/dL (31-37); MEAN CORPUSCULAR VOLUME 103 fL (79-100); MONO # 0.9 x10^3/uL (0.0-1.1); MONO % 7 % (0-9); NEUT # 6.9 x10^3uL (1.8-7.7); NEUT % 58 % (31-73); PLATELET COUNT 141 x10^3/uL (140-400); RED BLOOD COUNT 4.71 x10^6/uL (3.50-5.40); RED CELL DISTRIBUTION WIDTH 14.3 % (11.5-14.5); WHITE BLOOD COUNT 11.8 x10^3/uL (4.0-11.0)
[2021-08-09 13:53] LABS: ALBUMIN 3.7 g/dL (3.4-5.0); ALBUMIN/GLOBULIN RATIO 0.9 (1.0-1.7); CALCIUM 9.2 mg/dL (8.5-10.1); CREATININE 0.9 mg/dL (0.6-1.0); GFR 67.1; POTASSIUM 3.9 mmol/L (3.5-5.1); TOTAL BILIRUBIN 1.4 mg/dL (0.2-1.0); TOTAL PROTEIN 7.6 g/dL (6.4-8.2)
== END ==
LOC: LAB 12:59
PROVIDERS: ATTEND Internal Medicine Cardiovascular Disease
DX: I50.22 Chronic systolic (congestive) heart failure (principal); I42.0 Dilated cardiomyopathy; I36.2 Nonrheumatic tricuspid (valve) stenosis with insufficiency
CPT/HCPCS: 36415; 80053; 83880; 85025